=== PATIENT | female | born 1950 | race Caucasian/White ===

== ENCOUNTER 2018-05-30 06:07 | Inpatient (IN) | payer OTHER, SELFPAY ==
[2018-05-24 10:44] VITALS: BMI 48.5
[2018-05-30] VITALS (14 sets, daily range): BP systolic 105–170; BP diastolic 55–94; PULSE 88–100; RESP 8–16; TEMP 36.2–37.2; O2SAT 87–100; BMI 48.5
--- NOTE | 2018-05-30 | DI.RAD.S_ITS ---
PROCEDURE: XR LUMBAR SPINE 2-3V INDICATIONS: L4-5, L5-S1 TLIF TECHNIQUE: 2 views of the lumbar spine were acquired. COMPARISON: None. FINDINGS: Bones: A prior L4-5 and L5-S1 fusion has been performed with transverse pedicle screws and vertical fixation rods through these levels, in addition to bilateral disc prosthesis material at these 2 disc levels. Soft tissues: Overlying bowel gas pattern is normal. No suspicious soft tissue calcifications. IMPRESSION: Normal alignment established after bilateral posterior fusion procedure with interbody disc prosthesis material, crossing L45 and L5-S1. Dictated by: Ridge Barajas M.D. on 05/30/2018 at 16:13 Approved by: Ridge Barajas M.D. on 05/30/2018 at 16:14
[2018-05-30] MEDS: LACTATED RINGERS 1,000 ML 42 ML IV ×2 (07:33→11:00)
--- NOTE | 2018-05-30 07:53 | PM.PREOP ---
Pre-operative Note Interval Note Pre-op Check: Yes History & Physical Reviewed by Physician, Yes Exam Performed and Yes History & Physical exam performed today by Physician Changes: No
[2018-05-30] MEDS: CEFAZOLIN 2 GM/100 ML FROZ.PIGGY IV ×3 (08:05→20:14)
--- NOTE | 2018-05-30 08:52 | SUR.OPER ---
Prone on spine table, head in foam head support, padded chest and pelvic supports, gel pad at knees, lower legs supported by pillows; nipples, genitalia and toes free of pressure, arms secured on foam padded arm boards at <90 degrees abduction. Tape over blanket at thigh secured to table.
[2018-05-30] MEDS: BUPIVACAINE LIPOSOME 266 MG/20 ML VIAL INJ (09:40)
[2018-05-30] MEDS: BUPIVACAINE 0.25% W/ EPI VIAL 50 ML INJ (09:40)
--- NOTE | 2018-05-30 12:09 | P.OP_ITS ---
Operative Date/Time/Diagnoses Date of procedure: 05/30/18 Time of procedure: 08:07 Pre-op diagnosis: 1. L4-5, L5-S1 spondylolisthesis 2. L4-5, L5-S1 spinal stenosis 3. L4-5, L5-S1 spondylosis with radiculopathy Post-op diagnosis: same Procedure & Clinicians Procedure: 1. L4-5, L5-S1 Postero-lateral and posterior interbody fusion 2. L4-5, L5-S1 interbody cage placement. 3. L4-5, L5-S1 decompressive laminectomy with bilateral facetecomies 4. L4-5, L5-S1 Posterior segmental instrumentation 5. Fortine of bone marrow from iliac crest 6. Utilization of microsurgical technique and operating microscope Same procedure as scheduled: Yes Indications: Patient has been having chronic back pain and worsening lumbar radiculopathy. Patient failed multiple conservative management with worsening pain weakness and numbness in her lower extremity. Patient has been having difficulty performing activity of daily living. After discussing risks benefits of treatment options, patient elected proceed with surgery. Surgeon: Devante Monique Casino Controller: Madalyn Lewis Click Yes if Unassisted: No Anesthesia Type: General Operative Notes Closure Type: primary Specimen(s): none sent Implants & Drains: Globus Revolve, rise Cage Applied: catheter Estimated Blood Loss (mL): 250 Blood products transfused: none Procedure in detail: Patient was seen in the preoperative area. Risks and benefits of the surgery was discussed with the patient. Informed consent was obtained from the patient and placed in the chart. Surgical site was marked. Patient was taken to the operative room. General anesthesia was administered. Prophylactic antibiotic was given to the patient less than 30 min before the incision was made. Patient was placed into a prone position on the Rojelio table. Patient's back was then prepped and draped in the sterile fashion. Time- out was performed at this time. Using AP and lateral C-arm imaging the interval between L4-S1 was identified and marked on patient's back. A 2 inch incision 2 in from midline was made on the left side first. The fascia was incised in line with skin incision. Globus MARS retractors was placed inside the incision and docked onto the L4 and L5 lamina. Using microsurgical technique and operating microscope, a L4 and L5 laminectomy and L4-5 L5-S1 facetectomy was performed using a Kerrison rongeur. The disc space at L4-5, L5-S1 was identified. And a total diskectomy was performed at L4-5, L5-S1 level. The endplates were decorticated using a rasp and shaver. The total diskectomy and decortication was performed at L4-5, L5- S1 level in order to to accomplish a L4-5, L5-S1 fusion. The local bone from the laminectomy and facetectomy was saved for local bone grafting. After the total diskectomy and decortication was completed, Globus viacell bone graft material was combined with local bone that was harvested earlier. At this time , a separate skin is incision was made over the iliac crest. A Jamshidi needle was inserted into the iliac crest through a separate skin incision. 5 cc of bone marrow aspiration was obtained through the separate skin incision using a Jamshidi needle from the iliac crest. The bone marrow aspiration was combined with local bone and the via cell bone grafting material. The bone grafting material was placed into the L4-5, L5-S1 interbody space along with two cages, one expandable cage at each level. The cages were expanded to their maximum height using the torque limiting screwdriver. At this time a mirror image incision was made on the right side. The fascia was incised in line with the skin incision. Globus MARS retractor was inserted and docked onto the L4-5, L5-S1 posterolateral gutter. Using the power drill, posterior-lateral decortication was performed at L4-5, L5-S1 level until bleeding cortical bone was identified. The remaining bone grafting material was placed into the L4-5 L5-S1 posterior lateral gutter he order to accomplish posterolateral fusion at the L4-5 L5-S1 levels. Using the double C-arm technique, pedicle screws were placed into the L4, L5, S1 pedicles bilaterally. This was done by placing the Jamshidi needle into the pedicles, then placing the guidewires over the Jamshidi needle, and finally placing the cannulated screws over the guidewires bilaterally. After the pedicle screws were placed, 2 titanium rods was locked into the heads of the pedicle screws using locking caps and torque limiting screwdriver. Total 6 pedicles screws were placed. After all the hardware was placed, and confirmed with AP and lateral C-arm imaging, the wound was then irrigated with sterile normal saline and packed with Ray-Mando gauze for 3 min to accomplish hemostasis. After the gauze was removed the deep fascia was closed with #1 Vicryl suture. The subcutaneous layer was closed with 2-0 Vicryl. The skin was closed with skin chad. Patient tolerated the procedure well. There were no complications. Complications: none Condition: stable Disposition: PACU Plan for aftercare: Admit to inpatient hospital
[2018-05-30] MEDS: METOPROLOL TARTRATE 5 MG/5 ML INJ 1 MG IV ×2 (12:15→12:35)
[2018-05-30] MEDS: SODIUM CHLORIDE 0.9% 1,000 ML 100 ML IV (14:07)
[2018-05-30] MEDS: ONDANSETRON 4 MG/2 ML INJ IV (14:07)
--- NOTE | 2018-05-30 14:29 | CM.IDA ---
DCP Assessment Note: Pt is a 68 yo female, resident of [facility]. Pt is admitted for spinal surgery w/Dr Monique. Pt's PCP is Dr Kodak Fitzgerald. Insurance is [employer] [facility]. Reviewed notes and pre-anesthesia assessment. Attempted to meet w/pt and she was off the floor for surgery. This OPERATING SYSTEM PROGRAMMER will follow closely and attempt again tomorrow, POD#1. ZONIA Holden Discharge Planning/Care Management CM Discharge Assessment Start: 05/30/18 14:25 Freq: Status: Active Protocol: Document 05/30/18 14:25 JUDY (Rec: 05/30/18 14:29 JUDY [email or web address]) Discharge Planning Assessment Assigned Phys Asst JUDY DPOA/Assigned Designee Name irena Woodbritney Contact Information [phone] Advance Directives? Yes Advance Directives on File No History Provided By Medical Record Prior Living Arrangements House Household Members none Type of transporation used prior to Drives own vehicle admit Independent with ADL's No: SOB, weakness, back pain, difficulty walking Is patient alert and oriented? Yes Comment To be assessed. Pre-anesthesia assessment indicates pt has a lot of pain, numbness and difficulty walking, thus may not ambulate often or for long distances. Pt is 5'1'' weighs 257 pounds. Caregiver for Another No Comment Pending assessment and work w/ PT/OT Additional Comment Pt off the floor for surgery today. Assessment by this OPERATING SYSTEM PROGRAMMER and therapy team are pending. Whiteboard Updated in Patient Room with Yes name and ext. # of Phys Asst Review Status In Process
--- NOTE | 2018-05-30 14:37 | PC.NURSE ---
Addendum entered by Loreto Richard R.N. 05/30/18 15:07: RESP - pt remains drowsy, RR 10, 02 sat 97% 2l, discussed monitoring with RT, in for eval, and w/pt hx sleep apnea, c02 monitoring will be started. Original Note: POST OP ARRIVAL - drowsy, awakens easily to voice and can follow basic directions, returns to light snore, RR 8-10 initially, 2l 95%, enc take deep breaths, rolled to side, barrier dsg cdi, fountain wih sm qty clear urine, footie scd on, does state some nausea during transport, 4mg iv zofran given, no pain reported, per PACU, iv dilaudid and exparel given in OR.
[2018-05-30] MEDS: hydrOXYzine pamoate 25 MG CAPSULE PO ×2 (15:42→20:09)
[2018-05-30] MEDS: OXYCODONE IR 5 MG TABLET 10 MG PO ×2 (17:14→20:08)
--- NOTE | 2018-05-30 17:19 | PT.IPTN ---
Current Diagnoses Spondylolisthesis, lumbar region (05/30/18) Spinal stenosis, lumbar region without neurogenic claudication (05/30/18) Intervertebral disc disorders with radiculopathy, lumbar region (05/30/18) Surgery Performed Operation Date: 05/30/18 07:45 Actual Procedures p L4-5, L5-S1 TLIF w/ Posterior Instrumentation - Devante Monique MD Physical Therapy Treatment Note M3 PT-IP Subjective Start: 05/30/18 17:16 Freq: NEEDED Status: Active Protocol: Document 05/30/18 17:17 BEULAH (Rec: 05/30/18 17:19 BEULAH [id number]) Subjective Physical Therapy Visit Type Type Patient Refusal Visit Start Time 17:00 Notes Patient refused to participate in PT evaluation at this time(1700) due to general body fatigue and acute pain. Nurse in charge informed with the refusal. Patient to see tomorrow morning.
[2018-05-30] MEDS: HYDROMORPHONE 1 MG INJ 0.5 MG IV ×2 (18:23→21:20)
--- NOTE | 2018-05-30 18:41 | PC.NURSE ---
Pt resting quietly in bed on back and is easily rousable to voice. 02 2L nc sats high 90's;94% with sleep. Pt's sister is at bedside. Pt reports feeling, tight and nauseated. Given po vistaril with sip water. Reports relief @ reassessment. C/o pain 05/18 and reports left leg/foot numbness. Does states h/o numbness to this extremity preoperatively. Able to palpate pedal pulse to left foot. Equally warm and pink extremities. BL foot pumps in place. Pt given 10 mg oxycodone with little relief. Pt now becoming tearful. Additional family members @ bedside. Discussed with pt often position changes allow for pain relief and pt is resistant. Further encouraged this action with family support and PHOTOGRAPHY TEACHER assistance. Pt repositioned onto right side with pillows to support and ice to back. Reports minimal relief in pain, but is conversing with daughter @ bedside. Administered 0.5 mg iv dilaudid with immediate and excellent relief.
[2018-05-30] MEDS: DOCUSATE 100 MG CAPSULE PO (20:10)
[2018-05-30] MEDS: ACETAMINOPHEN 325 MG TABLET 650 MG PO (20:10)
[2018-05-30] MEDS: SENNOSIDES 8.6 MG TABLET 17.2 MG PO (20:10)
--- NOTE | 2018-05-30 22:40 | PC.NURSE ---
PranavTEfrain has established capnography monitoring as pt has h/o AMY. 02 2l per nc sats 94% with sleep. Daughter has come and spent hours and now returns to pt's home to sleep overnight. Dilaudid iv given for pain 05/18. Pt is currently resting quietly in bed with eyes closed in no distress. Apple to gravity. No further c/o nausea. Per pt's history, pt with sleep apnea without cpap use. Respirations are even and unlabored. BL foot pumps in place. Pt's daughter to bring in pt's own Dulera in A.M. 05/31.
[2018-05-31] VITALS (11 sets, daily range): BP systolic 103–137; BP diastolic 53–79; PULSE 96–102; RESP 13–18; TEMP 36.8–37.3; O2SAT 88–100; BMI 48.7
[2018-05-31] MEDS: SODIUM CHLORIDE 0.9% 1,000 ML 100 ML IV (00:04)
[2018-05-31] MEDS: hydrOXYzine pamoate 25 MG CAPSULE PO ×4 (00:36→23:09)
[2018-05-31] MEDS: CEFAZOLIN 2 GM/100 ML FROZ.PIGGY IV (04:03)
[2018-05-31] MEDS: OXYCODONE IR 5 MG TABLET 10 MG PO ×5 (04:08→23:10)
[2018-05-31 05:29] LABS: Hematocrit 27.5 % (36-46); Hemoglobin 9.5 g/dL (12.0-16.0)
[2018-05-31] MEDS: DOCUSATE 100 MG CAPSULE PO ×2 (08:12→20:33)
[2018-05-31] MEDS: ACETAMINOPHEN 325 MG TABLET 650 MG PO ×3 (08:12→23:10)
--- NOTE | 2018-05-31 10:49 | PM.PNPO.1 ---
Subjective Date Patient Seen: 05/31/18 Time Patient Seen: 07:30 Interval history: Patient is post op day 1 status post L4-S1 TLIF w/ posterior instrumentation with Dr. Monique. She is laying in bed comfortably without any signs of distress. She reports that she was not in the mood for PT yesterday and refused. She reports increased pain in her hips bilaterally. She would like more pain meds at this time. Patient was put on oxygen via nasal cannula due to low pulse ox of 82 yesterday. She reports that her left foot feels like it is sleep. Patient denies fever, chills, chest pain and vomiting. Exam Vital Signs (past 8 hours): - 05/31/18 04:25 05/31/18 08:27 05/31/18 09:25 Temperature 99.1 F 99 F Pulse Rate 98 H 96 H Respiratory Rate 16 18 Blood Pressure 135/79 H 135/75 H Pulse Oximetry 95 95 93 05/31/18 09:26 Temperature Pulse Rate Respiratory Rate Blood Pressure Pulse Oximetry 88 L Oxygen Delivery Method Room Air Oxygen Flow Rate 0 Narrative Exam Narrative: Patient is AOx3. Patient has oxygen nasal cannula in place. Lumbar dressing is CDI. Patient has urinary cath in place. Patient is TTP of the lower lumbar region. Patient is TTP of the R hip. Dorsalis pedis and radial pulses are 2+ symmetrically. Sensation to LE intact to light touch bilaterally. Muscle strength in dorsiflexion, plantarflexion,great toe extension and bottom turner is adequate bilaterally. R calf is tender to palpation; otherwise calfs are soft and compressible. Objective Labs Result Diagrams: 05/31/18 04:52 Labs: Laboratory Results - last 24 hr 05/31/18 04:52 Hgb 9.5 L Hct 27.5 L Assessment & Plan Post-op Postoperative Procedures Operation Date: 05/30/18 07:45 Actual Procedures Side Surgeon p L4-5, L5-S1 TLIF w/ Posterior Instrumentation Devante Monique MD Postoperative day: 1 Postoperative status: marginal pain control Postoperative plan: routine post-op care and ambulate Postoperative plan narrative: Start mobilizing with PT, sitting in chair and ambulating. Continue pain management. Wean off oxygen. Time Spent With Patient less than 15 minutes Quality VTE Deep Vein Thrombosis/Pulmonary Embolism Present on Admission: No
--- NOTE | 2018-05-31 10:52 | PT.IIE ---
Current Diagnoses Spondylolisthesis, lumbar region (05/30/18) Spinal stenosis, lumbar region without neurogenic claudication (05/30/18) Intervertebral disc disorders with radiculopathy, lumbar region (05/30/18) Surgery Performed Operation Date: 05/30/18 07:45 Actual Procedures p L4-5, L5-S1 TLIF w/ Posterior Instrumentation - Devante Monique MD Surgical History (Last Updated 05/24/18 @ 11:20 by Carley Parish, RN) History of cholecystectomy (Acute) Hx of varicose vein ligation and stripping (Acute) Status post bilateral cataract extraction (Acute) Medical History (Last Updated 05/24/18 @ 11:29 by Carley Parish RN) Allergic rhinitis (Acute) Asthma (Acute) DVT (deep venous thrombosis) (Acute) Depressed (Acute) Easy bruisability (Acute) GERD (gastroesophageal reflux disease) (Acute) HTN (hypertension) (Acute) Headache, migraine (Acute) Intermittent constipation (Acute) Intermittent diarrhea (Acute) Left shoulder pain (Acute) Numbness (Acute) Osteoarthritis (Acute) Pedal edema (Acute) Pulmonary embolism (Acute) Seronegative erosive rheumatoid arthritis (Acute) Sleep apnea (Acute) Vertigo (Acute) Xanthelasma (Acute) Physical Therapy Inpatient Evaluation/Re-Eval M1 PT/OT-IP Prior Functional Status Start: 05/30/18 17:16 Freq: NEEDED Status: Active Protocol: Document 05/31/18 15:21 DLM (Rec: 05/31/18 16:42 DLM [id number]) Medical Review Prior Functional Status Medical History Reviewed Yes Diet/Fluid Consistency Regular Communication WNL Mobility and Gait Independent without device short distances in community, used a FWW recently due to pain Activities of Daily Living and IADL's Independent, except sister has been helping with socks and shoes PRN Prior Functional Level (Other details) Sister has been staying with pt lately to assist with IADLS ; sister can stay with pt after surgery for as long as needed per pt. Pt has not driven for 3 months due to L leg pain. Social History Household Members none Living Arrangements House Number of Floors (Floors) One Floor Number of Stairs To Enter/Railing? ramp to enter home Home Environment High Toilet Tub/Shower Ramp Home Equipment Front Wheel Walker Four Wheel Walker Straight Cane Hand Held Shower Long Handled Sponge Grab Bars In Shower Employment Status Retired Additional Social History Comment has two cats, bathtub is higher jacuzzi tub M2 PT-IP Current Condition Start: 05/30/18 17:16 Freq: NEEDED Status: Active Protocol: Document 05/31/18 10:52 DLM (Rec: 05/31/18 11:37 DLM [id number]) Physical Therapy Current Condition Current Condition Evaluation Date 05/31/18 Treatment Diagnosis L4-S1 TLIF, impaired gait Onset Date 05/30/18 Precautions Lumbar Precautions Log Roll No Twisting Limit Bending Lifting Restriction of 10 lbs Gait Belt above Incisional Area M3 PT-IP Subjective Start: 05/30/18 17:16 Freq: NEEDED Status: Active Protocol: Document 05/31/18 10:52 DLM (Rec: 05/31/18 11:37 DLM [email or web address]) Subjective Physical Therapy Visit Type Type Initial Evaluation Visit Start Time 10:10 Visit Stop Time 10:52 Total Visit Minutes 42 Number of NURSE SANE Visits 0 Physical Therapy Visit Comments Patient Comments She describes numbness in left foot today and right thigh Short Term Goals return home when ready Therapy Pain Assessment Pain When Pain Assessed After Treatment Pain Present Pain Present Pain Reported Location Lower Back Intensity 1 Scale Used Numeric (1 - 10) Description Aching Pain Management Techniques Apply Cold Timing of Activity with Medications M4 PT-IP Mobility and Gait Start: 05/30/18 17:16 Freq: NEEDED Status: Active Protocol: Document 05/31/18 10:52 DLM (Rec: 05/31/18 11:37 DLM [id number]) PT-Bed Mobility Assessment Rolling Type of Rolling Log Rolling Level of Assist Minimal Assistance Moderate Assistance 1 Person Assistance Supine to Sit Supine to Sit Moderate Assistance 1 Person Assistance Bedrails Scooting Scooting to Edge of Bed Moderate Assistance Scooting Up and Down in Bed Dependent PT-Transfer Assessment Sit to and From Stand Sit to and from Stand Minimal Assistance Use of Upper Extremities Equipment Transfer Assistive Device Gait Belt Front Wheeled Walker Transfers Transfer Destination Chair Transfer Technique Stand Step Pivot Transfer Ability Level of Assist Minimal Assistance Moderate Assistance Comments Mobility Comments unsteadiness with post/lateral sway, mild light-headedness and mild nausea with initial getting up but did not prevent activity, two sit-stand trials completed before pt able to transfer to [facility] Gait Assessment Comments Gait Comments gait not attempted this visit due to pt's decreased balance with transfers, pt up to recliner and positioned for comfort, ice to incisional area, call light close PT-Balance Assessment Sitting Balance and Reactions Static Sitting Balance Ability Good Dynamic Sitting Balance Ability Good Standing Balance and Reactions Static Standing Balance Ability Fair Dynamic Standing Balance Ability Fair Device Used FWW M5 PT-IP Objective Assessments Start: 05/30/18 17:16 Freq: NEEDED Status: Active Protocol: Document 05/31/18 10:52 DLM (Rec: 05/31/18 11:37 DL [id number]) Orientation Orientation/Cognition Level of Alertness Alert Orientation Name Age Birthday Month Date Year Day of Week Place Situation Language Function Ability No Deficits Noted Safety Awareness Understands Safety Issues Memory Description No Deficits Noted Comments she needs reminders for post- op safety precautions Gross Range of Motion Upper Extremity ROM Assessment Within Functional Limits Lower Extremity ROM Assessment Within Functional Limits Strength Upper Extremity Strength Assessment Within Functional Limits Lower Extremity Strength Assessment Bilaterally Impaired Hip hip flexion 3-/5 Knee knee ext 4+/5 Ankle DF 5/5 Coordination Assessment Gross Coordination Gross Coordination WNL Sensation Assessment Sensation Gross Sensation Right LE Impaired Left LE Impaired Light Touch Impaired Proprioception (Position) Intact Sensation Description Numbness Comments Sensation Comments numbness in right thigh and left foot post-op Muscle Tone Muscle Tone WNL Yes M6 PT-IP Treatment Start: 05/30/18 17:16 Freq: NEEDED Status: Active Protocol: Document 05/31/18 10:52 DLM (Rec: 05/31/18 11:37 [facility] [id number]) Physical Therapy Treatment Education Education Provided Precautions Safety Other Treatments Other Treatment Performed educated in spine precautions M7 PT-IP Assessment and Plan Start: 05/30/18 17:16 Freq: NEEDED Status: Active Protocol: Document 05/31/18 10:52 DLM (Rec: 05/31/18 11:37 DL [id number]) PT Summary Assessment and Plan Potential Rehabilitation Potential Good Status of Condition at Evaluation Evolving Summary Impairments Pain ROM Strength Balance Sensation Bed Mobility Transfers Gait Activity Tolerance Goals Bed Mobility Goal Independent Transfer Goal Independent Front Wheeled Walker Gait Goal Independent Front Wheel Walker Gait Distance 60 feet Days to Meet Goals 3 Frequency of Treatment Frequency Of Treatment Twice a Day Treatment Plan Physical Therapy Treatment Plan Bed Mobility Training Transfer Training Gait Training Therapeutic Exercise Balance Retraining Post Op Education Discharge Planning Hot or Cold Pack Recommendations To Nursing Amount of Assist Needed 1 Person Assist Discharge Recommendations PT Discharge Recommendations Home with Assistance Home Health Other Discharge Recommendations continue to assess for discharge, needs to progress well to achieve home with assist, otherwise she will need SNF
[2018-05-31] MEDS: LISINOPRIL 20 MG TABLET 40 MG PO (12:13)
--- NOTE | 2018-05-31 12:51 | PC.NURSE ---
AM NOTE - repositioned for breakfast, the co2 monitor was off, changed now to NC 1l and sat 94%, bs clear, dim, later w/02 off, ra 93-94%, statedpain 7 on scale 0/10, little tearful, given oxycodone 10mg, 25mg po vistaril and 650mg po tylenol with meal for pain control, fountain w/clear yellow urine, footie scd, hr 96, later am up to dangle position with PT and then tsf to chair, russell with earlier pain medication, some initial dizziness resolved after dangle, sat chair until lunch, pain 2 on scale 0/10, then states back beginning to hurt and becomes a little tearful again, given 10mg oxycodone as she did feel drowsy earlier, assisted x 2 person w/fww, gait belt and back bed, reminding to log roll, wanted to try on back for a while, calm after tsf and conversing with visitors.
--- NOTE | 2018-05-31 13:55 | OT.IP.EVAL ---
Current Diagnoses Spondylolisthesis, lumbar region (05/30/18) Spinal stenosis, lumbar region without neurogenic claudication (05/30/18) Intervertebral disc disorders with radiculopathy, lumbar region (05/30/18) Surgery Performed Operation Date: 05/30/18 07:45 Actual Procedures p L4-5, L5-S1 TLIF w/ Posterior Instrumentation - Devante Monique MD Past Medical History (Last Updated 05/24/18 @ 11:29 by Carley Parish RN) Allergic rhinitis (Acute) Asthma (Acute) DVT (deep venous thrombosis) (Acute) Depressed (Acute) Easy bruisability (Acute) GERD (gastroesophageal reflux disease) (Acute) HTN (hypertension) (Acute) Headache, migraine (Acute) Intermittent constipation (Acute) Intermittent diarrhea (Acute) Left shoulder pain (Acute) Numbness (Acute) Osteoarthritis (Acute) Pedal edema (Acute) Pulmonary embolism (Acute) Seronegative erosive rheumatoid arthritis (Acute) Sleep apnea (Acute) Vertigo (Acute) Xanthelasma (Acute) Surgical History (Last Updated 05/24/18 @ 11:20 by Carley Parish RN) History of cholecystectomy (Acute) Hx of varicose vein ligation and stripping (Acute) Status post bilateral cataract extraction (Acute) Occupational Therapy Inpatient Evaluation/Re-Eval M1 PT/OT-IP Prior Functional Status Start: 05/30/18 17:16 Freq: NEEDED Status: Active Protocol: Document 05/31/18 14:56 CESAR (Rec: 05/31/18 15:14 CESAR [id number]) Medical Review Prior Functional Status Medical History Reviewed Yes Diet/Fluid Consistency Regular Communication WNL Mobility and Gait Independent without device short distances in community, used a FWW recently due to pain Activities of Daily Living and IADL's Independent, except sister has been helping with socks and shoes PRN Prior Functional Level (Other details) Sister has been staying with pt lately to assist with IADLS ; sister can stay with pt after surgery for as long as needed per pt. Pt has not driven for 3 months due to L leg pain. Social History Household Members none Living Arrangements House Number of Floors (Floors) One Floor Number of Stairs To Enter/Railing? ramp to enter home Home Environment High Toilet Tub/Shower Ramp Home Equipment Front Wheel Walker Hand Held Shower Long Handled Sponge Grab Bars In Shower Employment Status Retired Additional Social History Comment has two cats, bathtub is higher jacuzzi tub M2 OT-IP Current Condition Start: 05/31/18 14:55 Freq: Status: Active Protocol: Document 05/31/18 14:56 PJM (Rec: 05/31/18 15:14 PJ [id number]) Occupational Therapy Current Condition Current Condition Evaluation Date 05/31/18 Treatment Diagnosis decreased self care and functional mobility s/p L 4-5, L5-S1 TLIF Diagnosis Onset Date 05/30/18 Post Operative Precautions Lumbar Precautions Log Roll No Twisting Limit Bending Lifting Restriction of 10 lbs Gait Belt above Incisional Area M3 OT- IP Subjective and Pain Start: 05/31/18 14:55 Freq: Status: Active Protocol: Document 05/31/18 14:56 PJM (Rec: 05/31/18 15:14 PJ [id number]) OT- Subjective Occupational Therapy Visit Type Type Initial Evaluation Visit Start Time 13:21 Visit Stop Time 13:55 Total Visit Minutes 34 Occupational Therapy Visit Comments Patient/Caregiver Goals to go home and be able to live alone again OT Pain Assessment Pain When Pain Assessed At Rest Pain Present Pain Present Pain Reported Location Lower Back Intensity 2 Scale Used Numeric (1 - 10) Description Aching Acute Pain Behaviors Guarding M4 OT- IP ADL's Start: 05/31/18 14:55 Freq: Status: Active Protocol: Document 05/31/18 14:56 PJRachel (Rec: 05/31/18 15:14 [facility] [id number]) OT [id number] General Evaluation Self-Feeding Ability Independent OT ADL-Grooming General Evaluation Grooming Ability Standby Assistance Areas Needing Assistance Retrieving/Set-up of Grooming Items Face Washing Comments OT Grooming Comments after set up in bed or chair OT ADL-Oral Care General Eval Oral Care Ability Standby Assistance Areas of Assistance Retrieving/Set-Up of Items Comments Oral Care Comments after set up in bed or chair OT ADL-Dressing General Eval Lower Body Dressing Ability Maximum Assistance Areas Needing Assistance Underpants/Brief Pants/Shorts Socks Shoes Assistive Devices Dressing Assistive Devices Long Handled Shoe [place] [employer] Trade Analyst Sock Aid Comments OT Dressing Comments Began education re: use of adaptive equipment to increased independence in lower body dressing with emphasis on body mechanics and lumbar spine precautions. Provided custody assistant, socjk aid, long shoe horn at pt request. OT ADL-Toileting General Evaluation Toileting Ability Total Assistance Areas Needing Assistance Empty Catheter or Colostomy Comments OT Toileting Comments pt still has fountain in place, began education re: body mechanics during melchor care and toilet paper aids OT ADL-Bathing Devices Bathing Equipment Long Handled Sponge or State Attorney Held Shower Sprayer Comments OT Bathing Comments to be assessed as activity tolerance improves M5 OT- IP IADL's Start: 05/31/18 14:55 Freq: Status: Active Protocol: Document 05/31/18 14:56 PJM (Rec: 05/31/18 15:14 [facility] [id number]) OT-Instrumental Activities of Daily Living Deficits IADL Deficits Identified Deficits Home Safety Awareness Awareness of Need for Assistance at Home Decreased Awareness Medication Management Medication Management No Deficits Identified Medication Management Comments pt states she normally manages own medications Money Management Money Management No Deficits Identified Meal Preparation Meal Preparation Caregiver Provides Assist Meal Preparation Comments sister to assist until pt able Fabric Coating Supervisor Fabric Coating Supervisor Caregiver Provides Assist Fabric Coating Supervisor Comments sister to assist until pt able Driving Driving Caregiver Provides Assist Driving Comments sister to assist until pt able M6 OT- IP Functional Cognition Start: 05/31/18 14:55 Freq: Status: Active Protocol: Document 05/31/18 14:56 PJM (Rec: 05/31/18 15:14 [facility] [id number]) Cognitive Factors Limiting Selfcare Function Cognitive Ability Level of Alertness Drowsy Patient Orientation Name Place Situation Attention Span Ability Capable of Focused Attention Ability to Follow Commands Able to Follow One Step Commands Safety Awareness Underestimates Need for Assistance Problem Solving Ability Needs Assist to Identify Solutions Cognitive Comments Cognitive Assessment Comments Pt has some decreased insight into how surgery will affect ability to function in home setting. OT- Vision and Hearing OT- Hearing Assessment OT- Hearing Assessment WFL OT- Vision Assessment Visual Acuity WFL Glasses All The Time Vision Assessment Comments Pt denies any recent changes. M7 OT- IP Mobility and Balance Start: 05/31/18 14:55 Freq: Status: Active Protocol: Document 05/31/18 14:56 PJM (Rec: 05/31/18 15:14 [facility] [id number]) OT-Transfer Assessment Comments Mobility Comments see P.T. eval OT- Gait Assessment Comments Gait Ability Comments Pt has not yet ambulated with P.T. OT- Balance Assessment Comments Other Balance Tests/Deviations/Treatment see P.T. eval : M8 OT- IP Objective Assessments Start: 05/31/18 14:55 Freq: Status: Active Protocol: Document 05/31/18 14:56 PJM (Rec: 05/31/18 15:14 [facility] [id number]) OT Gross Range of Motion Upper Extremity Range of Motion Assessment Within Functional Limits ROM Impairments pt reports R rotator cuff tear with pain at times but AROM WFL today OT Strength Upper Extremity Strength Assessment Within Functional Limits Comments Strength Comments BUE WFL for self care OT- Coordination Assessment Comments Coordination Comments BUE WFL OT-Muscle Tone Assessment Muscle Tone WNL Yes OT Sensation Assessment Comments Summary Comments Pt denies sensory deficits in BUE's, but reports L foot and R thigh numb. M9 OT- IP Assessment and Plan Start: 05/31/18 14:55 Freq: Status: Active Protocol: Document 05/31/18 14:56 PJM (Rec: 05/31/18 15:14 PJ [id number]) OT Summary Assessment and Plan Potential Rehabilitation Potential Good Analytic Complexity at Evaluation Low Summary OT Impairments Pain Strength Balance Functional Mobility Grooming Dressing Toileting Bathing Toilet Transfers Shower Transfers Assessment Summary Low complexity OT assessment completed with emphasis on self care skills within new lumbar spine precautions. Pt currently limited by pain, decreased balance and activity tolerance which results in performance deficits in all functional mobility. Pt has not yet ambulated with P.T. Pt also has performance deficits in standing grooming, lower body dressing, bathing and toileting. Pt will benefit from OT services here to address the goals below. Goals Grooming Goal Standby Assistance Dressing Goal Standby Assistance Toileting Goal Standby Assistance Bathing Goal Standby Assistance Hand Held Shower Sprayer Long Handled Sponge or [place] Toilet Transfer Goal Standby Assistance Shower Transfer Goal Contact Guard Assistance Patient/Caregiver Education Goal Demonstrate Post-Op Precautions Caregiver Independent Assisting Patient OT-Other Goals grooming to be done standing at sink with good body mechanics Days to Meet Goals 3 Frequency of Treatment Frequency Of Treatment Once a Day Treatment Plan OT Treatment Plan ADL Training Functional Mobility Patient/Family Education Discharge Planning Discharge Recommendations OT Discharge Recommendations Home with 01/05 Assist Other Discharge Recommendations pt states her sister can stay with her for as long as needed after d/c Home Equipment Needs shower seat, toilet paper aid
--- NOTE | 2018-05-31 14:49 | CM.DPC ---
DCP Cont: Met w/pt this morning, explained role. Pt lives (temporarily) with her sister, sister is a [employer] cg, and has been helping pt complete her application for Medicaid. Pt explains she is retired, her dtr Nina P# [phone] is her DPOA. Pt's dtr and sister are organizing a [employer] today. Functional baseline (?). Pt denies h/o HH or SNF although states I want to go home but if I need one (SNF) then I need one. Pt is hopeful she can return home w/assist from her family. Explained to pt that once PT assessed, this SUPERVISOR NET MAKING could return and discuss DCP options or needs again. Pt agreeable and appreciative of the visit. ZONIA Holden
--- NOTE | 2018-05-31 15:21 | PT.IPTN ---
Current Diagnoses Spondylolisthesis, lumbar region (05/30/18) Spinal stenosis, lumbar region without neurogenic claudication (05/30/18) Intervertebral disc disorders with radiculopathy, lumbar region (05/30/18) Surgery Performed Operation Date: 05/30/18 07:45 Actual Procedures p L4-5, L5-S1 TLIF w/ Posterior Instrumentation - Devante Monique MD Physical Therapy Treatment Note M2 PT-IP Current Condition Start: 05/30/18 17:16 Freq: NEEDED Status: Active Protocol: Document 05/31/18 10:52 DLM (Rec: 05/31/18 11:37 DLM [id number]) Physical Therapy Current Condition Current Condition Evaluation Date 05/31/18 Treatment Diagnosis L4-S1 TLIF, impaired gait Onset Date 05/30/18 Precautions Lumbar Precautions Log Roll No Twisting Limit Bending Lifting Restriction of 10 lbs Gait Belt above Incisional Area M3 PT-IP Subjective Start: 05/30/18 17:16 Freq: NEEDED Status: Active Protocol: Document 05/31/18 15:21 DLM (Rec: 05/31/18 16:49 DLM [id number]) Subjective Physical Therapy Visit Type Type Treatment Note Visit Start Time 14:50 Visit Stop Time 15:21 Total Visit Minutes 31 Number of DIETETIC TECHNICIAN Visits 0 Physical Therapy Visit Comments Patient Comments Her left foot continues to be numb Therapy Pain Assessment Pain When Pain Assessed After Treatment Pain Present Pain Present Pain Reported Location Lower Back Intensity 2 Scale Used Numeric (1 - 10) Description Aching Cramping Pain Behaviors Facial Grimacing Guarding Pain Management Techniques Apply Cold Re-positioning Timing of Activity with Medications M4 PT-IP Mobility and Gait Start: 05/30/18 17:16 Freq: NEEDED Status: Active Protocol: Document 05/31/18 15:21 DLM (Rec: 05/31/18 16:49 DLM [id number]) PT-Bed Mobility Assessment Rolling Type of Rolling Log Rolling Level of Assist Minimal Assistance Moderate Assistance Supine to Sit Supine to Sit Moderate Assistance Bedrails Sit to Supine Sit to Supine Moderate Assistance Bedrails Scooting Scooting to Edge of Bed Minimal Assistance Moderate Assistance PT-Transfer Assessment Sit to and From Stand Sit to and from Stand Minimal Assistance Equipment Transfer Assistive Device Gait Belt Front Wheeled Walker Comments Mobility Comments pt declined to sit up in chair this visit, wants to go back to bed Gait Assessment Gait Gait Assistance Required: Contact Guard Assist Distance (Feet) (feet) 12 Assistive Devices Assistive Device Gait Belt Front Wheeled Walker Gait Deviations General Gait Pattern Decreased Stride Length Factors Limiting Gait Function Factors Limiting Gait Function Decreased Activity Tolerance Decreased Strength Pain Comments Gait Comments improved balance during gait this visit, reports left foot numbness makes it harder PT-Balance Assessment Sitting Balance and Reactions Static Sitting Balance Ability Good Dynamic Sitting Balance Ability Good Standing Balance and Reactions Static Standing Balance Ability Fair Dynamic Standing Balance Ability Fair Device Used FWW M5 PT-IP Objective Assessments Start: 05/30/18 17:16 Freq: NEEDED Status: Active Protocol: Document 05/31/18 10:52 DLM (Rec: 05/31/18 11:37 DLM [id number]) Orientation Orientation/Cognition Level of Alertness Alert Orientation Name Age Birthday Month Date Year Day of Week Place Situation Language Function Ability No Deficits Noted Safety Awareness Understands Safety Issues Memory Description No Deficits Noted Comments she needs reminders for post- op safety precautions Gross Range of Motion Upper Extremity ROM Assessment Within Functional Limits Lower Extremity ROM Assessment Within Functional Limits Strength Upper Extremity Strength Assessment Within Functional Limits Lower Extremity Strength Assessment Bilaterally Impaired Hip hip flexion 3-/5 Knee knee ext 4+/5 Ankle DF 5/5 Coordination Assessment Gross Coordination Gross Coordination WNL Sensation Assessment Sensation Gross Sensation Right LE Impaired Left LE Impaired Light Touch Impaired Proprioception (Position) Intact Sensation Description Numbness Comments Sensation Comments numbness in right thigh and left foot post-op Muscle Tone Muscle Tone WNL Yes M6 PT-IP Treatment Start: 05/30/18 17:16 Freq: NEEDED Status: Active Protocol: Document 05/31/18 15:21 DLM (Rec: 05/31/18 16:49 DLM [id number]) Physical Therapy Treatment Education Education Provided Precautions Safety M7 PT-IP Assessment and Plan Start: 05/30/18 17:16 Freq: NEEDED Status: Active Protocol: Document 05/31/18 15:21 DLM (Rec: 05/31/18 16:49 DLM [id number]) PT Summary Assessment and Plan Summary Impairments Pain ROM Strength Balance Sensation Bed Mobility Transfers Gait Activity Tolerance Progress Towards Goals Slow Progress due to Pain Slow Progress due to Activity Tolerance Assessment Summary She is progressing slowly today with her gait and mobility. She reports she has help at home for discharge. She will need to continue to increase her gait to functional household distances to be safe to return home at discharge. Frequency of Treatment Frequency Of Treatment Twice a Day Treatment Plan Physical Therapy Treatment Plan Bed Mobility Training Transfer Training Gait Training Therapeutic Exercise Balance Retraining Post Op Education Discharge Planning Hot or Cold Pack Other Recommendations and Next Treatment increase distance of gait, Focus family training Recommendations To Nursing Amount of Assist Needed 1 Person Assist Discharge Recommendations PT Discharge Recommendations Home with Assistance Home Health Other Discharge Recommendations continue to assess for discharge, needs to progress well to achieve home with assist, otherwise she will need SNF
--- NOTE | 2018-05-31 16:05 | PC.NURSE ---
Pt lying in bed tearful clenching side rails with hands. Daughter @ bedside. Pt states needs to be repositioned in bed and c/o spasms to hips. Does report numbness to LLE improving. Equally warm and pink extremities. Pt is able to move all extremities independently. Rates hip pain 6/10. Applied ice to most painful hip (right) and medicated as per emar. Repositioned in bed with staff assistance x 2 onto left side. Plan to move pt to Yue bed this evening shift for greater comfort. Pt was instructed in breathing techniques to enhance relaxation and provides return demonstration. Daughter @ bedside is a comfort. Apple to gravity with clear, yellow urine.
--- NOTE | 2018-05-31 17:22 | PC.NURSE ---
Pt up in chair for evening meal. Reports improvement in pain /10. No longer tearful. Pulses to feet BL auscultated with doppler x 2.
[2018-05-31] MEDS: HYDROMORPHONE 1 MG INJ 0.5 MG IV (18:27)
--- NOTE | 2018-05-31 18:45 | PC.NURSE ---
Pt calling out, clenching fists and tearful. Repositioned with staff assist x 2. Pt unable to verbalize exact location of pain. Administered 0.5 mg iv dilaudid with immediate relief. Pt encouraged to exercise deep breathing/relaxation techniques. Daughter remains at bedside providing support. Sats 89% on room air with rest. Placed pt on 2L per nc and continuous monitor. Sats in the upper 90's with sedation. Does nod in the affirmative when asked if pain is better.
[2018-05-31] MEDS: MOMETASONE FORMOTEROL 1 EACH INHALATION (20:33)
[2018-05-31] MEDS: SENNOSIDES 8.6 MG TABLET 17.2 MG PO (20:33)
[2018-05-31] MEDS: SODIUM CHLORIDE 0.9% FLUSH 10 ML IV (20:33)
--- NOTE | 2018-05-31 21:10 | PC.NURSE ---
Rouses easily to voice. Resting quietly in bed with eyes closed listening and watching to program on tablet at bedside. Daughter has left for the evening and no further crying out by patient. Did inform pt and pt's daughter fountain catheter to be dc'd in a.m. Coversite dressing to back with single outlined shadowy drainage area. No changes in dressing.
[2018-06-01] MEDS: hydrOXYzine pamoate 25 MG CAPSULE PO (05:02)
[2018-06-01] MEDS: OXYCODONE IR 5 MG TABLET 10 MG PO ×4 (05:02→20:43)
[2018-06-01 05:38] VITALS: BP 116/65; PULSE 88; RESP 16; TEMP 37.1; O2SAT 97
--- NOTE | 2018-06-01 06:14 | PC.NURSE ---
kept fountain in, pt refused.
--- NOTE | 2018-06-01 07:45 | PM.PNPO.1 ---
Subjective Date Patient Seen: 06/01/18 Time Patient Seen: 07:45 Interval history: Pt is s/p lumbar fusion by Dr. Monique. PD 2. Patient complaining of a lot of pain in back area and some numbness in left foot and right thigh. Has only ambulated in her room. Taking oxycodone 10mg q3h, vistaril and tylenol. Fountain still in. Exam Vital Signs (past 8 hours): - 06/01/18 05:38 Temperature 98.8 F Pulse Rate 88 Respiratory Rate 16 Blood Pressure 116/65 Pulse Oximetry 97 Oxygen Delivery Method Room Air Oxygen Flow Rate 2 Narrative Exam Narrative: Pt in bed. A&O x3. Back dressing CDI. 5/5 BLE strength. Numbness in left foot and right anterior thigh and foot. Marcello calves soft and nontender. Fountain in. Objective Labs Result Diagrams: 05/31/18 04:52 Assessment & Plan Post-op Postoperative Procedures Operation Date: 05/30/18 07:45 Actual Procedures Side Surgeon p L4-5, L5-S1 TLIF w/ Posterior Instrumentation Devante Monique MD PD 2. Will try steroid bust for pain control. Pt to ambulate with PT. D/C fountain when more mobile. Possible home in next day or two. Quality VTE Deep Vein Thrombosis/Pulmonary Embolism Present on Admission: No
[2018-06-01] MEDS: HYDROMORPHONE 0.5 MG INJ IV (07:59)
[2018-06-01 08:24] VITALS: BP 115/51; PULSE 98; RESP 16; TEMP 36.9; O2SAT 96
[2018-06-01] MEDS: DOCUSATE 100 MG CAPSULE PO ×2 (08:55→20:44)
[2018-06-01] MEDS: LISINOPRIL 20 MG TABLET 40 MG PO (08:55)
[2018-06-01] MEDS: DEXAMETHASONE 10 MG/ML VIAL IV (08:56)
[2018-06-01] MEDS: SODIUM CHLORIDE 0.9% FLUSH 10 ML IV ×3 (08:57→20:45)
--- NOTE | 2018-06-01 11:08 | PT.IPTN ---
Current Diagnoses Spondylolisthesis, lumbar region (05/30/18) Spinal stenosis, lumbar region without neurogenic claudication (05/30/18) Intervertebral disc disorders with radiculopathy, lumbar region (05/30/18) Surgery Performed Operation Date: 05/30/18 07:45 Actual Procedures p L4-5, L5-S1 TLIF w/ Posterior Instrumentation - Devante Monique MD Physical Therapy Treatment Note M2 PT-IP Current Condition Start: 05/30/18 17:16 Freq: NEEDED Status: Active Protocol: Document 05/31/18 10:52 DLM (Rec: 05/31/18 11:37 DLM [id number]) Physical Therapy Current Condition Current Condition Evaluation Date 05/31/18 Treatment Diagnosis L4-S1 TLIF, impaired gait Onset Date 05/30/18 Precautions Lumbar Precautions Log Roll No Twisting Limit Bending Lifting Restriction of 10 lbs Gait Belt above Incisional Area M3 PT-IP Subjective Start: 05/30/18 17:16 Freq: NEEDED Status: Active Protocol: Document 06/01/18 11:08 AB (Rec: 06/01/18 12:12 AB [id number]) Subjective Physical Therapy Visit Type Type Treatment Note Visit Start Time 11:08 Visit Stop Time 11:45 Total Visit Minutes 37 Number of BURIAL NEEDS SALESPERSON Visits 0 Physical Therapy Visit Comments Patient Comments pt agreeable to do PT Therapy Pain Assessment Pain When Pain Assessed During Mobility Pain Present Pain Present Pain Reported Location Lower Back Scale Used pain scale not stated Pain Behaviors Crying Guarding Pain Management Techniques Apply Cold Re-positioning Timing of Activity with Medications M4 PT-IP Mobility and Gait Start: 05/30/18 17:16 Freq: NEEDED Status: Active Protocol: Document 06/01/18 11:08 AB (Rec: 06/01/18 12:12 AB [id number]) PT-Bed Mobility Assessment Rolling Type of Rolling Log Rolling Level of Assist Maximal Assistance 1 Person Assistance 2 Person Assistance Supine to Sit Supine to Sit Maximum Assistance 1 Person Assistance 2 Person Assistance Bedrails Scooting Scooting to Edge of Bed Maximum Assistance PT-Transfer Assessment Sit to and From Stand Sit to and from Stand Minimal Assistance Moderate Assistance 1 Person Assistance Use of Upper Extremities Equipment Transfer Assistive Device Gait Belt Front Wheeled Walker Orthotic/Prosthetic Devices or Brace: No Transfers Transfer Destination Chair Transfer Technique Stand Step Pivot Transfer Ability Level of Assist Minimal Assistance Moderate Assistance Comments Mobility Comments pt completed transfer bed to chair. unable to tolerate further PT and refused ambulation after transfers. c/ o numbness on BLE. M5 PT-IP Objective Assessments Start: 05/30/18 17:16 Freq: NEEDED Status: Active Protocol: Document 05/31/18 10:52 DLM (Rec: 05/31/18 11:37 DLM [id number]) Orientation Orientation/Cognition Level of Alertness Alert Orientation Name Age Birthday Month Date Year Day of Week Place Situation Language Function Ability No Deficits Noted Safety Awareness Understands Safety Issues Memory Description No Deficits Noted Comments she needs reminders for post- op safety precautions Gross Range of Motion Upper Extremity ROM Assessment Within Functional Limits Lower Extremity ROM Assessment Within Functional Limits Strength Upper Extremity Strength Assessment Within Functional Limits Lower Extremity Strength Assessment Bilaterally Impaired Hip hip flexion 3-/5 Knee knee ext 4+/5 Ankle DF 5/5 Coordination Assessment Gross Coordination Gross Coordination WNL Sensation Assessment Sensation Gross Sensation Right LE Impaired Left LE Impaired Light Touch Impaired Proprioception (Position) Intact Sensation Description Numbness Comments Sensation Comments numbness in right thigh and left foot post-op Muscle Tone Muscle Tone WNL Yes M6 PT-IP Treatment Start: 05/30/18 17:16 Freq: NEEDED Status: Active Protocol: Document 06/01/18 11:08 AB (Rec: 06/01/18 12:12 AB [id number]) Physical Therapy Treatment Education Education Provided Precautions Safety M7 PT-IP Assessment and Plan Start: 05/30/18 17:16 Freq: NEEDED Status: Active Protocol: Document 06/01/18 11:08 AB (Rec: 06/01/18 12:12 AB [id number]) PT Summary Assessment and Plan Potential Rehabilitation Potential Fair Summary Impairments Pain ROM Strength Balance Sensation Bed Mobility Transfers Gait Activity Tolerance Progress Towards Goals Slow Progress due to Pain Assessment Summary pt requiring 2 person extensive assist with mobility at this time and will require SNF rehab to improve strength and function prior to d/c home. pt unable to ambulate at this time with c/o increase pain and unable to tolerate much activity. Goals Bed Mobility Goal Independent Transfer Goal Independent Front Wheeled Walker Gait Goal Independent Front Wheel Walker Gait Distance 60 feet Days to Meet Goals 3 Frequency of Treatment Frequency Of Treatment Twice a Day Treatment Plan Physical Therapy Treatment Plan Bed Mobility Training Transfer Training Gait Training Therapeutic Exercise Balance Retraining Post Op Education Discharge Planning Hot or Cold Pack Other Recommendations and Next Treatment increase distance of gait, Focus family training Recommendations To Nursing Amount of Assist Needed 2 Person Assist Discharge Recommendations PT Discharge Recommendations SNF Rehab
[2018-06-01] MEDS: DEXAMETHASONE 4 MG/ML VIAL IV ×2 (11:39→17:49)
[2018-06-01 12:13] VITALS: BP 146/56; PULSE 100; RESP 14; TEMP 37.1; O2SAT 93
--- NOTE | 2018-06-01 14:27 | OT.IP.TRT ---
Current Diagnoses Spondylolisthesis, lumbar region (05/30/18) Spinal stenosis, lumbar region without neurogenic claudication (05/30/18) Intervertebral disc disorders with radiculopathy, lumbar region (05/30/18) Surgery Performed Operation Date: 05/30/18 07:45 Actual Procedures p L4-5, L5-S1 TLIF w/ Posterior Instrumentation - Devante Monique MD Occupational Therapy Treatment Note M2 OT-IP Current Condition Start: 05/31/18 14:55 Freq: Status: Active Protocol: Document 05/31/18 14:56 PJM (Rec: 05/31/18 15:14 PJM [id number]) Occupational Therapy Current Condition Current Condition Evaluation Date 05/31/18 Treatment Diagnosis decreased self care and functional mobility s/p L 4-5, L5-S1 TLIF Diagnosis Onset Date 05/30/18 Post Operative Precautions Lumbar Precautions Log Roll No Twisting Limit Bending Lifting Restriction of 10 lbs Gait Belt above Incisional Area M3 OT- IP Subjective and Pain Start: 05/31/18 14:55 Freq: Status: Active Protocol: Document 06/01/18 14:24 [facility] (Rec: 06/01/18 14:27 [facility] [id number]) OT- Subjective Occupational Therapy Visit Type Type Patient Refusal Notes Pt states just got back to bed and not wanting to get up for OT at this time. Pt able to recall 2/3 back precautions and did talk to her about possible use of tub bench for tub/shower. Pt states has not talked to her sister getting toilet aid yet
--- NOTE | 2018-06-01 14:54 | PC.NURSE ---
Pt up to chair. Pain more controlled with dexamethasone administration. Dressing to back replaced as it was shearing off. Incisions have steristrips and no signs of infection.
[2018-06-01 15:43] VITALS: BP 135/66; PULSE 97; RESP 16; TEMP 37; O2SAT 92
--- NOTE | 2018-06-01 16:40 | PT.IPTN ---
Current Diagnoses Spondylolisthesis, lumbar region (05/30/18) Spinal stenosis, lumbar region without neurogenic claudication (05/30/18) Intervertebral disc disorders with radiculopathy, lumbar region (05/30/18) Surgery Performed Operation Date: 05/30/18 07:45 Actual Procedures p L4-5, L5-S1 TLIF w/ Posterior Instrumentation - Devante Monique MD Physical Therapy Treatment Note M2 PT-IP Current Condition Start: 05/30/18 17:16 Freq: NEEDED Status: Active Protocol: Document 05/31/18 10:52 DLM (Rec: 05/31/18 11:37 DLM [email or web address]) Physical Therapy Current Condition Current Condition Evaluation Date 05/31/18 Treatment Diagnosis L4-S1 TLIF, impaired gait Onset Date 05/30/18 Precautions Lumbar Precautions Log Roll No Twisting Limit Bending Lifting Restriction of 10 lbs Gait Belt above Incisional Area M3 PT-IP Subjective Start: 05/30/18 17:16 Freq: NEEDED Status: Active Protocol: Document 06/01/18 16:40 AB (Rec: 06/01/18 17:45 AB [id number]) Subjective Physical Therapy Visit Type Type Treatment Note Visit Start Time 16:40 Visit Stop Time 16:56 Total Visit Minutes 16 Number of RN BABY Visits 0 Therapy Pain Assessment Pain When Pain Assessed At Rest Pain Present Pain Present Pain Reported Location Lower Back Scale Used pain scale not stated Pain Management Techniques Apply Cold Timing of Activity with Medications M4 PT-IP Mobility and Gait Start: 05/30/18 17:16 Freq: NEEDED Status: Active Protocol: Document 06/01/18 16:40 AB (Rec: 06/01/18 17:45 AB [id number]) PT-Transfer Assessment Sit to and From Stand Sit to and from Stand Moderate Assistance 1 Person Assistance Use of Upper Extremities Equipment Transfer Assistive Device Gait Belt Front Wheeled Walker Orthotic/Prosthetic Devices or Brace: No Transfers Transfer Destination Chair Transfer Technique pt ambulated from the toilet to the chair using FWW Comments Mobility Comments pt completed sit to stand from the toilet mod A and cues and used grab bars to assist Gait Assessment Gait Gait Assistance Required: Minimum Assistance Distance (Feet) (feet) 10 Able to Maintain Weight Bearing Status Yes During Gait Assistive Devices Assistive Device Gait Belt Front Wheeled Walker Orthotic/Prosthetic Devices or Brace: No Gait Deviations General Gait Pattern Antalgic Decreased Stride Length Decreased Feet Clearance Factors Limiting Gait Function Factors Limiting Gait Function Decreased Activity Tolerance Decreased Sensation Decreased Strength Pain Poor Balance Poor Safety Awareness Comments Gait Comments pt ambulated from the toilet towards the sink using FWW min A and cues. pt was able to maintain standing using FWW for support min A and cues while completing handwashing. pt agreed to sit up on chair and ambulated to the chair using FWW min A and cues ~ 6 ft. M5 PT-IP Objective Assessments Start: 05/30/18 17:16 Freq: NEEDED Status: Active Protocol: Document 05/31/18 10:52 DLM (Rec: 05/31/18 11:37 DLM [email or web address]) Orientation Orientation/Cognition Level of Alertness Alert Orientation Name Age Birthday Month Date Year Day of Week Place Situation Language Function Ability No Deficits Noted Safety Awareness Understands Safety Issues Memory Description No Deficits Noted Comments she needs reminders for post- op safety precautions Gross Range of Motion Upper Extremity ROM Assessment Within Functional Limits Lower Extremity ROM Assessment Within Functional Limits Strength Upper Extremity Strength Assessment Within Functional Limits Lower Extremity Strength Assessment Bilaterally Impaired Hip hip flexion 3-/5 Knee knee ext 4+/5 Ankle DF 5/5 Coordination Assessment Gross Coordination Gross Coordination WNL Sensation Assessment Sensation Gross Sensation Right LE Impaired Left LE Impaired Light Touch Impaired Proprioception (Position) Intact Sensation Description Numbness Comments Sensation Comments numbness in right thigh and left foot post-op Muscle Tone Muscle Tone WNL Yes M6 PT-IP Treatment Start: 05/30/18 17:16 Freq: NEEDED Status: Active Protocol: Document 06/01/18 16:40 AB (Rec: 06/01/18 17:45 AB [id number]) Physical Therapy Treatment Education Education Provided Precautions Safety M7 PT-IP Assessment and Plan Start: 05/30/18 17:16 Freq: NEEDED Status: Active Protocol: Document 06/01/18 16:40 AB (Rec: 06/01/18 17:45 AB [id number]) PT Summary Assessment and Plan Potential Rehabilitation Potential Good Summary Impairments Pain ROM Strength Balance Sensation Cognition Bed Mobility Transfers Gait Activity Tolerance Progress Towards Goals Slow Progress due to Pain Slow Progress due to Activity Tolerance Assessment Summary pt progressing slowly with mobility and continues to require mod A with transfers using FWW. pt ambulated this afternoon in room ~10 + 5 ft requiring min A and unable to do more ambulation or activities afterwards. pt continues to have decrease activity tolerance affecting mobility with c/o increase pain with activity. pt will require SNF rehab to improve strength and functional independence prior to d/c home . Goals Bed Mobility Goal Independent Transfer Goal Independent Front Wheeled Walker Gait Goal Independent Front Wheel Walker Gait Distance 60 feet Days to Meet Goals 3 Frequency of Treatment Frequency Of Treatment Twice a Day Treatment Plan Physical Therapy Treatment Plan Bed Mobility Training Transfer Training Gait Training Therapeutic Exercise Balance Retraining Post Op Education Discharge Planning Hot or Cold Pack Other Recommendations and Next Treatment increase distance of gait, Focus family training Recommendations To Nursing Amount of Assist Needed 1 Person Assist Discharge Recommendations PT Discharge Recommendations SNF Rehab
--- NOTE | 2018-06-01 16:47 | PC.NURSE ---
Dr. Whyte in house. Addressed pt's warfarin use as a home med with MD explaining that this med hasn't been reordered postop. Per Dr. Whyte, continue to hold and MD to follow up with Kiya MACE.
--- NOTE | 2018-06-01 16:59 | PC.NURSE ---
Pt requests assistance to bathroom for bowel movement and is agreeable to sit up in recliner for dinner. Staff x 2 assisted pt to bathroom with pt occasionally crying out during transfer. O.T. and P.T. in to see patient and assisted pt back from bathroom into recliner. Pt reports baseline right thigh numbness and left foot numbness (pt reports left foot numbness is more pronounced postoperatively).
[2018-06-01] MEDS: MAGNESIUM HYDROXIDE 30 ML UDC PO (17:04)
--- NOTE | 2018-06-01 17:04 | OT.IP.TRT ---
Current Diagnoses Spondylolisthesis, lumbar region (05/30/18) Spinal stenosis, lumbar region without neurogenic claudication (05/30/18) Intervertebral disc disorders with radiculopathy, lumbar region (05/30/18) Surgery Performed Operation Date: 05/30/18 07:45 Actual Procedures p L4-5, L5-S1 TLIF w/ Posterior Instrumentation - Devante Monique MD Occupational Therapy Treatment Note M2 OT-IP Current Condition Start: 05/31/18 14:55 Freq: Status: Active Protocol: Document 05/31/18 14:56 PJM (Rec: 05/31/18 15:14 PJM [id number]) Occupational Therapy Current Condition Current Condition Evaluation Date 05/31/18 Treatment Diagnosis decreased self care and functional mobility s/p L 4-5, L5-S1 TLIF Diagnosis Onset Date 05/30/18 Post Operative Precautions Lumbar Precautions Log Roll No Twisting Limit Bending Lifting Restriction of 10 lbs Gait Belt above Incisional Area M3 OT- IP Subjective and Pain Start: 05/31/18 14:55 Freq: Status: Active Protocol: Document 06/01/18 17:02 [facility] (Rec: 06/01/18 17:04 [facility] [email or web address]) OT- Subjective Occupational Therapy Visit Type Type Administrative Note Visit Start Time 14:50 Visit Stop Time 14:55 Total Visit Minutes 5 Notes Pt just about to get dinner, able to help switch to larger gown, get wider FWW for pt to use, and go over back precautions, pt only able to recall 2/3.
--- NOTE | 2018-06-01 17:41 | PC.NURSE ---
Kiya MACE now up on floor. Reports discussed pt's warfarin use with Dr. Whyte and ordered to proceed. Pt informed. Warfarin administered as ordered after verbal clarification.
[2018-06-01] MEDS: WARFARIN 5 MG TABLET PO (17:47)
[2018-06-01 19:51] VITALS: BP 140/73; PULSE 80; RESP 16; TEMP 36.6; O2SAT 93
[2018-06-01] MEDS: ACETAMINOPHEN 325 MG TABLET 650 MG PO (20:44)
[2018-06-01] MEDS: SENNOSIDES 8.6 MG TABLET 17.2 MG PO (20:45)
[2018-06-01] MEDS: MOMETASONE FORMOTEROL 1 EACH INHALATION (20:45)
--- NOTE | 2018-06-01 22:50 | PC.NURSE ---
Pt resting quietly in bed with eyes closed. Occasional loud snore. Checked 02 sats on room air s/p administration of pain medications. Room air 85%. Placed pt on 2L oxygen per NC and sats increase to 95%. Pt does rouse easily to tactile stimuli. BL foot pumps in place.
[2018-06-01 23:39] VITALS: O2SAT 91; O2SAT 96
[2018-06-02] VITALS (9 sets, daily range): BP systolic 112–139; BP diastolic 58–74; PULSE 75–85; RESP 12–18; TEMP 36.1–36.8; O2SAT 94–99
[2018-06-02] MEDS: DEXAMETHASONE 4 MG/ML VIAL IV ×2 (00:17→07:31)
[2018-06-02] MEDS: OXYCODONE IR 5 MG TABLET 10 MG PO ×4 (04:24→20:06)
[2018-06-02] MEDS: SODIUM CHLORIDE 0.9% FLUSH 10 ML IV ×2 (07:32→20:06)
[2018-06-02] MEDS: DOCUSATE 100 MG CAPSULE PO ×2 (07:33→20:06)
--- NOTE | 2018-06-02 08:30 | CM.DPC ---
DCP: continued: Case received, EMR reviewed and listened to a vm from [facility] L/left yesterday after dept hours. She stated referral for snf auth had been given by ZONIA Pompa and that thus far it was noted that pain and numbness were slowing down the therapy progress. More clinical is requested for this scheduled spinal surgery. Will fax updated clinicals including last evenings PT note. No OT order noted, one is now obtained as this will needed for a snf consideration.
[2018-06-02 08:37] LABS: INR 1.1 (0.9-1.3); Prothrombin Time 11.4 SECONDS (10.1-12.7)
--- NOTE | 2018-06-02 09:30 | PT.IPTN ---
Current Diagnoses Spondylolisthesis, lumbar region (05/30/18) Spinal stenosis, lumbar region without neurogenic claudication (05/30/18) Intervertebral disc disorders with radiculopathy, lumbar region (05/30/18) Surgery Performed Operation Date: 05/30/18 07:45 Actual Procedures p L4-5, L5-S1 TLIF w/ Posterior Instrumentation - Devante Monique MD Physical Therapy Treatment Note M2 PT-IP Current Condition Start: 05/30/18 17:16 Freq: NEEDED Status: Active Protocol: Document 05/31/18 10:52 DLM (Rec: 05/31/18 11:37 DLM [email or web address]) Physical Therapy Current Condition Current Condition Evaluation Date 05/31/18 Treatment Diagnosis L4-S1 TLIF, impaired gait Onset Date 05/30/18 Precautions Lumbar Precautions Log Roll No Twisting Limit Bending Lifting Restriction of 10 lbs Gait Belt above Incisional Area M3 PT-IP Subjective Start: 05/30/18 17:16 Freq: NEEDED Status: Active Protocol: Document 06/02/18 09:30 [facility] (Rec: 06/02/18 12:22 [facility]GD [email or web address]) Subjective Physical Therapy Visit Type Type Treatment Note Visit Start Time 09:00 Visit Stop Time 09:30 Total Visit Minutes 30 Number of MAIL ORDER BILLER Visits 1 Physical Therapy Visit Comments Patient Comments Pt states she needs to use the bathroom. Therapy Pain Assessment Pain When Pain Assessed At Rest Pain Present Pain Present Pain Reported Location Lower Back Intensity 4 M4 PT-IP Mobility and Gait Start: 05/30/18 17:16 Freq: NEEDED Status: Active Protocol: Document 06/02/18 09:30 [facility]GD (Rec: 06/02/18 12:22 [facility]GD [email or web address]) PT-Bed Mobility Assessment Rolling Type of Rolling Log Rolling Level of Assist Moderate Assistance 1 Person Assistance Supine to Sit Supine to Sit Moderate Assistance 1 Person Assistance Bedrails Scooting Scooting to Edge of Bed Maximum Assistance PT-Transfer Assessment Sit to and From Stand Sit to and from Stand Moderate Assistance 1 Person Assistance Use of Upper Extremities Equipment Transfer Assistive Device Gait Belt Front Wheeled Walker Transfers Transfer Destination Toilet Transfer Ability Level of Assist Minimal Assistance Gait Assessment Gait Gait Assistance Required: Minimum Assistance Distance (Feet) (feet) 10 Assistive Devices Assistive Device Gait Belt Front Wheeled Walker Gait Deviations General Gait Pattern Antalgic Decreased Stride Length Decreased Feet Clearance Factors Limiting Gait Function Factors Limiting Gait Function Decreased Activity Tolerance Decreased Sensation Decreased Strength Pain Poor Balance Poor Safety Awareness M5 PT-IP Objective Assessments Start: 05/30/18 17:16 Freq: NEEDED Status: Active Protocol: Document 05/31/18 10:52 DLM (Rec: 05/31/18 11:37 DLM [email or web address]) Orientation Orientation/Cognition Level of Alertness Alert Orientation Name Age Birthday Month Date Year Day of Week Place Situation Language Function Ability No Deficits Noted Safety Awareness Understands Safety Issues Memory Description No Deficits Noted Comments she needs reminders for post- op safety precautions Gross Range of Motion Upper Extremity ROM Assessment Within Functional Limits Lower Extremity ROM Assessment Within Functional Limits Strength Upper Extremity Strength Assessment Within Functional Limits Lower Extremity Strength Assessment Bilaterally Impaired Hip hip flexion 3-/5 Knee knee ext 4+/5 Ankle DF 5/5 Coordination Assessment Gross Coordination Gross Coordination WNL Sensation Assessment Sensation Gross Sensation Right LE Impaired Left LE Impaired Light Touch Impaired Proprioception (Position) Intact Sensation Description Numbness Comments Sensation Comments numbness in right thigh and left foot post-op Muscle Tone Muscle Tone WNL Yes M6 PT-IP Treatment Start: 05/30/18 17:16 Freq: NEEDED Status: Active Protocol: Document 06/02/18 09:30 GGD (Rec: 06/02/18 12:22 GGD [email or web address]) Physical Therapy Treatment Education Education Provided Precautions Safety M7 PT-IP Assessment and Plan Start: 05/30/18 17:16 Freq: NEEDED Status: Active Protocol: Document 06/02/18 09:30 [facility]GD (Rec: 06/02/18 12:22 GGD [email or web address]) PT Summary Assessment and Plan Summary Assessment Summary Pt is improving slowly. She needs mod a for bed mobility. She uses grab bars for sit to stand to toilet. She heavy use of UE on FWW with gait. Goals Bed Mobility Goal Independent Transfer Goal Independent Front Wheeled Walker Gait Goal Independent Front Wheel Walker Gait Distance 60 feet Days to Meet Goals 3 Frequency of Treatment Frequency Of Treatment Twice a Day Treatment Plan Physical Therapy Treatment Plan Bed Mobility Training Transfer Training Gait Training Therapeutic Exercise Balance Retraining Post Op Education Discharge Planning Hot or Cold Pack Other Recommendations and Next Treatment increase distance of gait, Focus family training Recommendations To Nursing Amount of Assist Needed 1 Person Assist Discharge Recommendations PT Discharge Recommendations SNF Rehab
--- NOTE | 2018-06-02 10:24 | P.PN_ITS ---
Subjective Date Patient Seen: 06/02/18 Time Patient Seen: 07:00 Interval history: Post op day 3 status post L4-S1 TLIF with posterior instrumentation with Dr. Monique. Patient is laying in bed without signs of distress. Pain reports that her pain is manageable at this time with oxycodone 10mg. She reports ambulating with PT however she is still have difficulty. Patient reports that the L foot numbness has improved, however her she is experiencing L upper thigh numbness. Patient denies any fever, chills, vomiting , chest pain or respiratory distress. Exam Vital Signs (past 8 hours): - 06/02/18 04:46 06/02/18 07:40 06/02/18 08:06 Temperature 97.6 F 98.3 F Pulse Rate 77 75 75 Respiratory Rate 14 16 16 Blood Pressure 139/68 H 131/58 H Pulse Oximetry 94 96 96 06/02/18 08:08 Temperature Pulse Rate Respiratory Rate Blood Pressure Pulse Oximetry 94 Fraction of Inspired Oxygen 21 SaO2/FiO2 Ratio 6400 Oxygen Delivery Method Room Air Oxygen Flow Rate 0 Narrative Exam Narrative: Patient is AOx3. Patient appears to be in no acute distress. Patient has nasal cannula intact for oxygen. Urinary cath intact. Lumbar dressing is CDI. Dorsalis pedis and radial pulses are symmetric. LE muscle strength is adequate bilaterally. LE intact to light touch bilaterally. Slight TTP of the L upper thigh. Calfs are compressible, soft and non tender. Objective Labs Result Diagrams: 05/31/18 04:52 Labs: Laboratory Results - last 24 hr 06/02/18 08:20 PT 11.4 INR 1.1 Assessment & Plan Post-op Postoperative Procedures Operation Date: 05/30/18 07:45 Actual Procedures Side Surgeon p L4-5, L5-S1 TLIF w/ Posterior Instrumentation Devante Monique MD Postoperative day: 3 Postoperative status: doing well Postoperative plan: routine post-op care and ambulate Postoperative plan narrative: Likely to be discharged to SNF in 1-2 days. Continue pain management. Continue ambulating with PT. D/C fountain when more mobile. Quality VTE Deep Vein Thrombosis/Pulmonary Embolism Present on Admission: No
[2018-06-02] MEDS: LISINOPRIL 20 MG TABLET 40 MG PO (12:18)
--- NOTE | 2018-06-02 14:30 | PC.NURSE ---
Addendum entered by Ольга Dhaliwal R.N. 06/02/18 14:59: AT 1430 this shift PT working with patient reported to this RN that patient had homeopathic pills at her bedside arnica pills that they witnessed patient taking. This RN spoke with patient about homeopathic pills and need to not take them at this time due to possible interactions with ordered medications. Patient agreed to stop taking arnica at this time until the doctor could speak with her. Patient put pills back in her back and into patient closet at this time. Marisa in pharmacy made aware of this. Original Note: Day Shift Note: Patient doing well this shift. Patient agreed to have fountain removed and has been able to void. Patient pain much better today per patient report. Oxycodone effective for pain at this time. Patient ambulating into bathroom with 1 person assist with FWW. Dressings dry and intact, minimal old dry drainage noted. CMS intact, patient complains of L foot numbness that is normal for her pre-surgery. Patient now on room air with sats 93-95%, patient needs encouragement and reminders to cough and deep breath and to do IS exercises. Patient hoping to transfer to rehab facility tomorrow.
--- NOTE | 2018-06-02 15:19 | OT.IP.TRT ---
Current Diagnoses Spondylolisthesis, lumbar region (05/30/18) Spinal stenosis, lumbar region without neurogenic claudication (05/30/18) Intervertebral disc disorders with radiculopathy, lumbar region (05/30/18) Surgery Performed Operation Date: 05/30/18 07:45 Actual Procedures p L4-5, L5-S1 TLIF w/ Posterior Instrumentation - Devante Monique MD Occupational Therapy Treatment Note M2 OT-IP Current Condition Start: 05/31/18 14:55 Freq: Status: Active Protocol: Document 05/31/18 14:56 PJM (Rec: 05/31/18 15:14 PJM [id number]) Occupational Therapy Current Condition Current Condition Evaluation Date 05/31/18 Treatment Diagnosis decreased self care and functional mobility s/p L 4-5, L5-S1 TLIF Diagnosis Onset Date 05/30/18 Post Operative Precautions Lumbar Precautions Log Roll No Twisting Limit Bending Lifting Restriction of 10 lbs Gait Belt above Incisional Area M3 OT- IP Subjective and Pain Start: 05/31/18 14:55 Freq: Status: Active Protocol: Document 06/02/18 14:53 CCC (Rec: 06/02/18 15:18 CCC [email or web address]) OT- Subjective Occupational Therapy Visit Type Type Treatment Note Visit Start Time 14:05 Visit Stop Time 14:50 Total Visit Minutes 45 Notes Notified nursing as pt just took homeopathic medications. OT Pain Assessment Pain When Pain Assessed During Mobility Pain Present Pain Present Pain Reported M4 OT- IP ADL's Start: 05/31/18 14:55 Freq: Status: Active Protocol: Document 06/02/18 14:53 CCC (Rec: 06/02/18 15:18 CCC [id number]) OT ADL-Grooming General Evaluation Grooming Ability Standby Assistance Comments OT Grooming Comments Pt able to do while standing with FWW. OT ADL-Dressing General Eval Lower Body Dressing Ability Maximum Assistance OT ADL-Toileting General Evaluation Toileting Ability Total Assistance Areas Needing Assistance Manage Clothing Perform Perineal Hygiene Devices Toileting Assistive Devices Grab Bars Comments OT Toileting Comments Pt dependent for all pericare needs as pt unable to reach. Pt states at home takes a long 10-12 inch wash wipe and gets in between her legs to clean. Pt states sister can assist at home and they are looking into getting a toilet aid. M5 OT- IP IADL's Start: 05/31/18 14:55 Freq: Status: Active Protocol: Document 05/31/18 14:56 PJ (Rec: 05/31/18 15:14 PJM [id number]) OT-Instrumental Activities of Daily Living Deficits IADL Deficits Identified Deficits Home Safety Awareness Awareness of Need for Assistance at Home Decreased Awareness Medication Management Medication Management No Deficits Identified Medication Management Comments pt states she normally manages own medications Money Management Money Management No Deficits Identified Meal Preparation Meal Preparation Caregiver Provides Assist Meal Preparation Comments sister to assist until pt able Control Room Technician Control Room Technician Caregiver Provides Assist Control Room Technician Comments sister to assist until pt able Driving Driving Caregiver Provides Assist Driving Comments sister to assist until pt able M6 OT- IP Functional Cognition Start: 05/31/18 14:55 Freq: Status: Active Protocol: Document 06/02/18 14:53 [facility] (Rec: 06/02/18 15:18 [facility] [email or web address]) Cognitive Factors Limiting Selfcare Function Cognitive Ability Level of Alertness Alert Patient Orientation Name Place Situation Attention Span Ability Capable of Focused Attention Ability to Follow Commands Able to Follow One Step Commands Safety Awareness Decreased Ability to Apply Precautions Underestimates Need for Assistance Problem Solving Ability Needs Assist to Identify Solutions Cognitive Comments Cognitive Assessment Comments Pt still needing vc to incorporate back precautions for all needs. Pt easily distracted and needs step by step instructions. M7 OT- IP Mobility and Balance Start: 05/31/18 14:55 Freq: Status: Active Protocol: Document 06/02/18 14:53 [facility] (Rec: 06/02/18 15:18 [facility] [email or web address]) OT- Bed Mobility Assessment Rolling Type of Rolling Roll to Right Level of Assistance Minimal Assistance Bedrails Supine to Sit Supine to Sit Assist Moderate Assistance 1 Person Assistance Sit to Supine Sit to Supine Assist Moderate Assistance 1 Person Assistance Bedrails Scooting Scooting to Edge of Bed Moderate Assistance 1 Person Assistance OT-Transfer Assessment Sit to and From Stand Sit to and from Stand Contact Guard Assistance Transfers Transfer Ability Standby Assistance Technique Transfer Destination Bed Bedside Commode Chair Transfer Technique Stand Step Pivot Devices Transfer Assistive Devices Gait Belt Front Wheeled Walker Comments Mobility Comments Pt doing much better and able to stand from recliner, BSC and bed with CGA. M8 OT- IP Objective Assessments Start: 05/31/18 14:55 Freq: Status: Active Protocol: Document 05/31/18 14:56 PJM (Rec: 05/31/18 15:14 PJM [id number]) OT Gross Range of Motion Upper Extremity Range of Motion Assessment Within Functional Limits ROM Impairments pt reports R rotator cuff tear with pain at times but AROM WFL today OT Strength Upper Extremity Strength Assessment Within Functional Limits Comments Strength Comments BUE WFL for self care OT- Coordination Assessment Comments Coordination Comments BUE WFL OT-Muscle Tone Assessment Muscle Tone WNL Yes OT Sensation Assessment Comments Summary Comments Pt denies sensory deficits in BUE's, but reports L foot and R thigh numb. M9 OT- IP Assessment and Plan Start: 05/31/18 14:55 Freq: Status: Active Protocol: Document 06/02/18 14:53 [facility] (Rec: 06/02/18 15:18 [facility] [email or web address]) OT Summary Assessment and Plan Summary Progress Towards Goals Progressing Toward Goals Slow Progress due to Cognition Assessment Summary pt continues to need MODA for bed mobility needs and would benefit from family to come in for training. Pt also dependent for pericare needs and extensive assist for ADL's at this time. Goals Days to Meet Goals 2 Frequency of Treatment Frequency Of Treatment Once a Day Treatment Plan Other Treatment Recommendations and Next Family Training Treatment Focus Discharge Recommendations OT Discharge Recommendations Home with 24/ Assist versus skilled rehab pending caregiver training. Home Equipment Needs shower seat, toilet paper aid
--- NOTE | 2018-06-02 15:30 | PT.IPTN ---
Current Diagnoses Spondylolisthesis, lumbar region (05/30/18) Spinal stenosis, lumbar region without neurogenic claudication (05/30/18) Intervertebral disc disorders with radiculopathy, lumbar region (05/30/18) Surgery Performed Operation Date: 05/30/18 07:45 Actual Procedures p L4-5, L5-S1 TLIF w/ Posterior Instrumentation - Devante Monique MD Physical Therapy Treatment Note M2 PT-IP Current Condition Start: 05/30/18 17:16 Freq: NEEDED Status: Active Protocol: Document 05/31/18 10:52 DLM (Rec: 05/31/18 11:37 DLM [id number]) Physical Therapy Current Condition Current Condition Evaluation Date 05/31/18 Treatment Diagnosis L4-S1 TLIF, impaired gait Onset Date 05/30/18 Precautions Lumbar Precautions Log Roll No Twisting Limit Bending Lifting Restriction of 10 lbs Gait Belt above Incisional Area M3 PT-IP Subjective Start: 05/30/18 17:16 Freq: NEEDED Status: Active Protocol: Document 06/02/18 15:30 AB (Rec: 06/02/18 16:41 AB [id number]) Subjective Physical Therapy Visit Type Type Treatment Note Visit Start Time 15:30 Visit Stop Time 15:50 Total Visit Minutes 20 Number of SLUDGE CONTROL OPERATOR Visits 0 Physical Therapy Visit Comments Patient Comments pt agreeable to do PT Therapy Pain Assessment Pain When Pain Assessed At Rest Pain Present Pain Present Pain Reported Location Lower Back Scale Used pain scale not stated but said pain is ok Pain Management Techniques Re-positioning Timing of Activity with Medications M4 PT-IP Mobility and Gait Start: 05/30/18 17:16 Freq: NEEDED Status: Active Protocol: Document 06/02/18 15:30 AB (Rec: 06/02/18 16:41 AB [id number]) PT-Transfer Assessment Sit to and From Stand Sit to and from Stand Contact Guard Assistance Use of Upper Extremities Comments Mobility Comments pt with initial LOB upon sit to stand requiring min A and cues for recovery. Gait Assessment Gait Gait Assistance Required: Contact Guard Assist Distance (Feet) (feet) 100 Able to Maintain Weight Bearing Status Yes During Gait Assistive Devices Assistive Device Gait Belt Front Wheeled Walker Orthotic/Prosthetic Devices or Brace: No Gait Deviations General Gait Pattern Decreased Stride Length Decreased Feet Clearance Step-to Gait Factors Limiting Gait Function Factors Limiting Gait Function Decreased Activity Tolerance Decreased Strength Pain Poor Balance M5 PT-IP Objective Assessments Start: 05/30/18 17:16 Freq: NEEDED Status: Active Protocol: Document 05/31/18 10:52 DLM (Rec: 05/31/18 11:37 DLM [id number]) Orientation Orientation/Cognition Level of Alertness Alert Orientation Name Age Birthday Month Date Year Day of Week Place Situation Language Function Ability No Deficits Noted Safety Awareness Understands Safety Issues Memory Description No Deficits Noted Comments she needs reminders for post- op safety precautions Gross Range of Motion Upper Extremity ROM Assessment Within Functional Limits Lower Extremity ROM Assessment Within Functional Limits Strength Upper Extremity Strength Assessment Within Functional Limits Lower Extremity Strength Assessment Bilaterally Impaired Hip hip flexion 3-/5 Knee knee ext 4+/5 Ankle DF 5/5 Coordination Assessment Gross Coordination Gross Coordination WNL Sensation Assessment Sensation Gross Sensation Right LE Impaired Left LE Impaired Light Touch Impaired Proprioception (Position) Intact Sensation Description Numbness Comments Sensation Comments numbness in right thigh and left foot post-op Muscle Tone Muscle Tone WNL Yes M6 PT-IP Treatment Start: 05/30/18 17:16 Freq: NEEDED Status: Active Protocol: Document 06/02/18 15:30 AB (Rec: 06/02/18 16:41 AB [id number]) Physical Therapy Treatment Education Education Provided Precautions Safety Other Treatments Other Treatment Performed asked pt to inform her sister regarding caregiver training. stated that she called her daughter to let her sister know that she needs to talk to her for caregiver training. M7 PT-IP Assessment and Plan Start: 05/30/18 17:16 Freq: NEEDED Status: Active Protocol: Document 06/02/18 15:30 AB (Rec: 06/02/18 16:41 AB [id number]) PT Summary Assessment and Plan Potential Rehabilitation Potential Fair Summary Impairments Pain ROM Strength Balance Bed Mobility Transfers Gait Activity Tolerance Progress Towards Goals Progressing Toward Goals Assessment Summary pt progressing with mobility but will require assistance for safety. caregiver training will be conducted and tried to arrange one with pt and family but at this time, pt unable to contact family to set up time. will continue to assess. Goals Bed Mobility Goal Independent Transfer Goal Independent Front Wheeled Walker Gait Goal Independent Front Wheel Walker Gait Distance 100 ft Days to Meet Goals 3 Frequency of Treatment Frequency Of Treatment Twice a Day Treatment Plan Physical Therapy Treatment Plan Bed Mobility Training Transfer Training Gait Training Therapeutic Exercise Balance Retraining Post Op Education Discharge Planning Hot or Cold Pack Other Recommendations and Next Treatment increase distance of gait, Focus family training Recommendations To Nursing Amount of Assist Needed 1 Person Assist Discharge Recommendations PT Discharge Recommendations Home with Assistance Home Health
[2018-06-02] MEDS: MAGNESIUM HYDROXIDE 30 ML UDC PO (16:12)
[2018-06-02] MEDS: WARFARIN 2.5 MG TABLET PO (17:13)
[2018-06-02] MEDS: hydrOXYzine pamoate 25 MG CAPSULE PO (20:06)
[2018-06-02] MEDS: SENNOSIDES 8.6 MG TABLET 17.2 MG PO (20:06)
[2018-06-02] MEDS: MOMETASONE FORMOTEROL 1 EACH INHALATION (20:06)
[2018-06-03 00:08] VITALS: BP 108/60; PULSE 72; RESP 16; TEMP 36.6; O2SAT 95
[2018-06-03] MEDS: OXYCODONE IR 5 MG TABLET 10 MG PO ×3 (00:44→14:55)
[2018-06-03] MEDS: SODIUM CHLORIDE 0.9% FLUSH 10 ML IV ×2 (00:46→08:25)
[2018-06-03] MEDS: hydrOXYzine pamoate 25 MG CAPSULE PO (04:34)
[2018-06-03 04:39] VITALS: BP 130/61; PULSE 68; RESP 18; TEMP 36.7; O2SAT 94
[2018-06-03 07:36] VITALS: BP 89/51; PULSE 58; RESP 18; TEMP 36.4; O2SAT 95
[2018-06-03] MEDS: DOCUSATE 100 MG CAPSULE PO (08:24)
[2018-06-03] MEDS: MAG HYDROX/ALUM/SIMETH 30 ML UDC PO (08:30)
--- NOTE | 2018-06-03 09:35 | CM.DPC ---
Addendum entered by ZONIA Rose 06/03/18 14:40: ADD: SW spoke to Radha at [facility] and confirmed they can accept the pt today and will transport at 1530. DIANE faxed pt PASRR, med rec, script, and H&P to [facility] to review. DIANE updated RN, SENIOR [employer]AVA DATA ARCHITECT, pt's Dtr Nina, and pt and all agreeable with d/c plan today. BF Original Note: Addendum entered by ZONIA Rose 06/03/18 13:27: ADD: Per Iram at [facility], pt is approved for SNF auth at [facility]. SW called [facility] and left voicemail with update on SNF auth approval and likely pt d/c to SNF today. Per , pt is medically stable to d/c to SNF today. DIANE called pt's Dtr Nina at pt's request and updated on insurance SNF auth and likely d/c today and Dtr/DPOA Nina is very agreeable with d/c plan. Plan: SW waiting for return call from [facility] to determine time for discharge. ZONIA Rose Original Note: DCP Cont: Per PT, hoping to complete caregiver training with pt's sister but no confirmed time and date that sister can be bedside. Currently recommending home with assist and HH. Pt had concerns with mobility and had been agreeable with beginning process of [facility] SNF auth to determine if SNF is an option. DIANE called and [facility] was requesting clinicals from yesterday and today if available, LEXUS Madrigal faxed requested clinicals to [facility] w/e number. Per [facility], pt's review still with [facility] and not Physician review at this time. DIANE met bedside with pt and explained role and discussed d/c planning and pt confirms that she still would prefer SNF rehab at [facility] if possible but would be agreeable with HH if SNF not auth'd by insurance and SW provided the HH Choice List and pt does not have a preference. Pt confirmed that she would be agreeable with SW returning her Dtr/DPOA Nina's message requesting information on d/c planning. Plan: SW to follow closely for [facility] review to determine if pt is auth'd for SNF at [facility] vs home with sister and HH. If HH then SW to make referral to agency with the earliest availability. ZONIA Rose
[2018-06-03 09:40] VITALS: PULSE 58; RESP 16; O2SAT 95
[2018-06-03] MEDS: LISINOPRIL 20 MG TABLET 40 MG PO (11:58)
[2018-06-03 12:12] VITALS: BP 126/75; PULSE 99; RESP 16; TEMP 36.6; O2SAT 99
--- NOTE | 2018-06-03 13:24 | PT.IPTN ---
Current Diagnoses Spondylolisthesis, lumbar region (05/30/18) Spinal stenosis, lumbar region without neurogenic claudication (05/30/18) Intervertebral disc disorders with radiculopathy, lumbar region (05/30/18) Surgery Performed Operation Date: 05/30/18 07:45 Actual Procedures p L4-5, L5-S1 TLIF w/ Posterior Instrumentation - Devante Monique MD Physical Therapy Treatment Note M2 PT-IP Current Condition Start: 05/30/18 17:16 Freq: NEEDED Status: Active Protocol: Document 05/31/18 10:52 DLM (Rec: 05/31/18 11:37 DLM [id number]) Physical Therapy Current Condition Current Condition Evaluation Date 05/31/18 Treatment Diagnosis L4-S1 TLIF, impaired gait Onset Date 05/30/18 Precautions Lumbar Precautions Log Roll No Twisting Limit Bending Lifting Restriction of 10 lbs Gait Belt above Incisional Area M3 PT-IP Subjective Start: 05/30/18 17:16 Freq: NEEDED Status: Active Protocol: Document 06/03/18 10:00 CLB (Rec: 06/03/18 13:24 CLB [id number]) Subjective Physical Therapy Visit Type Type Treatment Note Visit Start Time 10:00 Visit Stop Time 10:30 Total Visit Minutes 30 Number of ROUTE PROCESS ADMINISTRATOR Visits 1 Physical Therapy Visit Comments Patient Comments Pt states she needs to use the bathroom. Therapy Pain Assessment Pain When Pain Assessed At Rest Pain Present Pain Present Pain Reported Location Lower Back Intensity 1 Pain Management Techniques Apply Cold M4 PT-IP Mobility and Gait Start: 05/30/18 17:16 Freq: NEEDED Status: Active Protocol: Document 06/03/18 10:00 CLB (Rec: 06/03/18 13:24 CLB [id number]) PT-Bed Mobility Assessment Rolling Type of Rolling Log Rolling Level of Assist Standby Assistance Supine to Sit Supine to Sit Moderate Assistance 1 Person Assistance Bedrails Scooting Scooting to Edge of Bed Maximum Assistance PT-Transfer Assessment Sit to and From Stand Sit to and from Stand Moderate Assistance 1 Person Assistance Use of Upper Extremities Equipment Transfer Assistive Device Gait Belt Front Wheeled Walker Transfers Transfer Destination Chair Toilet Transfer Technique pt ambulated from the toilet to the chair using FWW Transfer Ability Level of Assist Minimal Assistance Gait Assessment Gait Gait Assistance Required: Contact Guard Assist Distance (Feet) (feet) 50 Able to Maintain Weight Bearing Status Yes During Gait Assistive Devices Assistive Device Gait Belt Front Wheeled Walker Orthotic/Prosthetic Devices or Brace: No Gait Deviations General Gait Pattern Decreased Stride Length Decreased Feet Clearance Step-to Gait Factors Limiting Gait Function Factors Limiting Gait Function Decreased Activity Tolerance Decreased Strength Pain Poor Balance M5 PT-IP Objective Assessments Start: 05/30/18 17:16 Freq: NEEDED Status: Active Protocol: Document 05/31/18 10:52 DLM (Rec: 05/31/18 11:37 DLM [id number]) Orientation Orientation/Cognition Level of Alertness Alert Orientation Name Age Birthday Month Date Year Day of Week Place Situation Language Function Ability No Deficits Noted Safety Awareness Understands Safety Issues Memory Description No Deficits Noted Comments she needs reminders for post- op safety precautions Gross Range of Motion Upper Extremity ROM Assessment Within Functional Limits Lower Extremity ROM Assessment Within Functional Limits Strength Upper Extremity Strength Assessment Within Functional Limits Lower Extremity Strength Assessment Bilaterally Impaired Hip hip flexion 3-/5 Knee knee ext 4+/5 Ankle DF 5/5 Coordination Assessment Gross Coordination Gross Coordination WNL Sensation Assessment Sensation Gross Sensation Right LE Impaired Left LE Impaired Light Touch Impaired Proprioception (Position) Intact Sensation Description Numbness Comments Sensation Comments numbness in right thigh and left foot post-op Muscle Tone Muscle Tone WNL Yes M6 PT-IP Treatment Start: 05/30/18 17:16 Freq: NEEDED Status: Active Protocol: Document 06/03/18 10:00 CLB (Rec: 06/03/18 13:24 CLB [id number]) Physical Therapy Treatment Exercises Exercises Ankle Pumps Education Education Provided Precautions Safety Other Treatments Other Treatment Performed Pt states she is still unable to contact sister to come in for caregiver training. She sent a text to her daughter but has not heard back from her at this time. M7 PT-IP Assessment and Plan Start: 05/30/18 17:16 Freq: NEEDED Status: Active Protocol: Document 06/03/18 10:00 CLB (Rec: 06/03/18 13:24 CLB [id number]) PT Summary Assessment and Plan Potential Rehabilitation Potential Fair Summary Impairments Pain ROM Strength Balance Bed Mobility Transfers Gait Activity Tolerance Progress Towards Goals Progressing Toward Goals Assessment Summary Pt continues to need Mod A for bed mobility. Pt is able to ambulate safely in room with FWW. Pt needed assist with pericare. caregiver training will be conducted and tried to arrange one with pt and family but at this time, pt unable to contact family to set up time. will continue to assess. Pt may need SNF rehab depending on pt progress and her caregivers ability to care for her at home. Goals Bed Mobility Goal Independent Transfer Goal Independent Front Wheeled Walker Gait Goal Independent Front Wheel Walker Gait Distance 60 feet Days to Meet Goals 3 Frequency of Treatment Frequency Of Treatment Twice a Day Treatment Plan Physical Therapy Treatment Plan Bed Mobility Training Transfer Training Gait Training Therapeutic Exercise Balance Retraining Post Op Education Discharge Planning Hot or Cold Pack Other Recommendations and Next Treatment increase distance of gait, Focus family training Recommendations To Nursing Amount of Assist Needed 1 Person Assist Discharge Recommendations PT Discharge Recommendations Home with Assistance Home Health Other Discharge Recommendations SNF
--- NOTE | 2018-06-03 13:56 | PM.DS.1 ---
History of Present Illness Date Patient Seen: 06/03/18 Time Patient Seen: 13:00 Chief complaint: L4-5 L5-S1 TLIF W/POST INSTRU *CPT'S NICOLLE NOTES* Discharge Providers Date of admission: 05/30/18 06:07 Consults: 05/30/18 13:16 Consult to Occupational Therapy Evaluate & Treat Comment: Physician Instructions: Evaluate and treat Consult to Physical Therapy Evaluate & Treat Comment: Physician Instructions: Evaluate and Treat 05/30/18 15:58 Consult to Dietitian, Adult Routine Comment: Reason For Exam: obesity 06/02/18 08:29 Consult to Occupational Therapy Evaluate & Treat Comment: Physician Instructions: Evaluate and treat Discharge provider: Mabel Whyte MD Discharge Date: 06/03/18 Summary Discharge Diagnosis: spinal stenosis with decompression and fusion by Dr. Monique Hospital Course: Patient initially had problems with pain control postoperatively. She responded to narcotic medications and was doing well with oral agents at the time of discharge. She had some numbness into her left leg but had fairly normal strength overall. She was stable at the time of discharge and discharged to custodial facility. Exam Vital Signs (past 8 hours): - 06/03/18 07:36 06/03/18 09:40 06/03/18 12:12 Temperature 97.6 F 97.9 F Pulse Rate 58 L 58 L 99 H Respiratory Rate 18 16 16 Blood Pressure 89/51 L 126/75 H Pulse Oximetry 95 95 99 Fraction of Inspired Oxygen 21 SaO2/FiO2 Ratio 6400 Oxygen Delivery Method Room Air Oxygen Flow Rate 0 Narrative Exam Narrative: Alert and oriented, lungs clear abdomen obese but benign, dressing intact and dry, minimal swelling in bilateral lower extremities, calf soft, strength intact in bilateral lower extremities mild left leg numbness Objective Labs Result Diagrams: 05/31/18 04:52 Discharge Plan Discharge Plan Patient Disposition: SNF Transfer to: [facility] Transportation: Wheelchair I certify the postop hospital custodial care is medically necessary on a continuing basis for any conditions for which he/ she received care during this hospitalization.: Yes The receiving facility has agreed to accept transfer and provide medical treatment.: Yes Discharge Med Rec/Prescriptions Prescriptions: New sennosides [senna] 8.6 mg Tablet 17.2 mg PO BEDTIME Qty: 30 RF: 0 magnesium hydroxide [Milk of Magnesia] 400 mg/5 mL Suspension 30 ml PO DAILY PRN (Reason: Constipation) Qty: 30 RF: 0 bisacodyl 10 mg Suppository 10 mg NH PRN PRN (Reason: Constipation) Qty: 30 RF: 0 docusate sodium 100 mg Capsule 100 mg PO BID Qty: 60 RF: 0 alum-mag hydroxide-simeth [Mag-Al Plus] 200-200-20 mg/5 mL Suspension 30 ml PO QID PRN (Reason: Dyspepsia) Qty: 30 RF: 0 oxycodone 5 mg Tablet 10 mg PO Q3HR PRN (Reason: Pain, Severe (7-10)) Qty: 40 RF: 0 hydroxyzine pamoate 25 mg Capsule 25 mg PO Q4HR PRN (Reason: Nausea And Vomiting) Qty: 30 RF: 0 Continue cyclobenzaprine 10 mg Tablet 5 mg PO BID PRN (Reason: Muscle Spasm) RF: 0 acetaminophen [Tylenol Extra Strength] 500 mg Tablet 1,000 mg PO Q6H PRN (Reason: pain) RF: 0 oxycodone-acetaminophen 5-325 mg Tablet 1 tab PO Q6-8H PRN (Reason: Pain) RF: 0 warfarin 5 mg Tablet 5 mg PO QMWF RF: 0 warfarin 5 mg Tablet 2.5 mg PO [id number] RF: 0 albuterol sulfate 90 mcg/actuation Hfa Aerosol Inhaler 2 puff INHALATION Q4-6H PRN (Reason: Asthma) RF: 0 lisinopril 40 mg Tablet 40 mg PO DAILY RF: 0 mometasone-formoterol [Dulera] 100-5 mcg/actuation Hfa Aerosol Inhaler 1 puff INHALATION BEDTIME RF: 0 methotrexate 2.5 mg/mL Solution 0.8 mg/m2 PO QWEEK RF: 0 Discontinued enoxaparin [Lovenox] 120 mg/0.8 mL Syringe 120 mg SUB-Q Q12H RF: 0 Discharge Health Status Multidrug resistant organism: No MDRO Provider Discharge Instructions Diet: Diet as Tolerated Liquid consistency: Normal/Thin Food texture: Regular Activity: ambulate 3 times a day Cold/Heat Therapy: ice to back as needed Skin/Wound/Dressing Care Report to your healthcare provider any signs of infection, such as:: chills, fever, night sweats, increased pain and unusual drainage Dressing: keep dressing clean and dry Special Rehabilitation Services Reason for rehabilitation: Post-operative therapy Rehab type: Physical therapy Visit Report/Discharge Packet Instructions: DI for Transforaminal Lumbar Interbody Fusion Discharge Data Attending Provider: Devante Monique Admit Date/Time: 05/30/18 06:07 Quality VTE Deep Vein Thrombosis/Pulmonary Embolism Present on Admission: No
--- NOTE | 2018-06-03 14:01 | P.DS_ITS ---
History of Present Illness Date Patient Seen: 06/03/18 Time Patient Seen: 13:00 Chief complaint: L4-5 L5-S1 TLIF W/POST INSTRU *CPT'S NICOLLE NOTES* Discharge Providers Date of admission: 05/30/18 06:07 Consults: 05/30/18 13:16 Consult to Occupational Therapy Evaluate & Treat Comment: Physician Instructions: Evaluate and treat Consult to Physical Therapy Evaluate & Treat Comment: Physician Instructions: Evaluate and Treat 05/30/18 15:58 Consult to Dietitian, Adult Routine Comment: Reason For Exam: obesity 06/02/18 08:29 Consult to Occupational Therapy Evaluate & Treat Comment: Physician Instructions: Evaluate and treat Discharge provider: Mabel Whyte MD Discharge Date: 06/03/18 Summary Discharge Diagnosis: spinal stenosis with decompression and fusion by Dr. Monique Hospital Course: Patient initially had problems with pain control postoperatively. She responded to narcotic medications and was doing well with oral agents at the time of discharge. She had some numbness into her left leg but had fairly normal strength overall. She was stable at the time of discharge and discharged to [facility] facility. Exam Vital Signs (past 8 hours): - 06/03/18 07:36 06/03/18 09:40 06/03/18 12:12 Temperature 97.6 F 97.9 F Pulse Rate 58 L 58 L 99 H Respiratory Rate 18 16 16 Blood Pressure 89/51 L 126/75 H Pulse Oximetry 95 95 99 Fraction of Inspired Oxygen 21 SaO2/FiO2 Ratio 6400 Oxygen Delivery Method Room Air Oxygen Flow Rate 0 Narrative Exam Narrative: Alert and oriented, lungs clear abdomen obese but benign, dressing intact and dry, minimal swelling in bilateral lower extremities, calf soft, strength intact in bilateral lower extremities mild left leg numbness Objective Labs Result Diagrams: 05/31/18 04:52 Discharge Plan Discharge Plan Patient Disposition: SNF Transfer to: [facility] Transportation: Wheelchair I certify the postop hospital usp care is medically necessary on a continuing basis for any conditions for which he/ she received care during this hospitalization.: Yes The receiving facility has agreed to accept transfer and provide medical treatment.: Yes Discharge Med Rec/Prescriptions Prescriptions: New sennosides [senna] 8.6 mg Tablet 17.2 mg PO BEDTIME Qty: 30 RF: 0 magnesium hydroxide [Milk of Magnesia] 400 mg/5 mL Suspension 30 ml PO DAILY PRN (Reason: Constipation) Qty: 30 RF: 0 bisacodyl 10 mg Suppository 10 mg [place] PRN PRN (Reason: Constipation) Qty: 30 RF: 0 docusate sodium 100 mg Capsule 100 mg PO BID Qty: 60 RF: 0 alum-mag hydroxide-simeth [Mag-Al Plus] 200-200-20 mg/5 mL Suspension 30 ml PO QID PRN (Reason: Dyspepsia) Qty: 30 RF: 0 oxycodone 5 mg Tablet 10 mg PO Q3HR PRN (Reason: Pain, Severe (7-10)) Qty: 40 RF: 0 hydroxyzine pamoate 25 mg Capsule 25 mg PO Q4HR PRN (Reason: Nausea And Vomiting) Qty: 30 RF: 0 Continue cyclobenzaprine 10 mg Tablet 5 mg PO BID PRN (Reason: Muscle Spasm) RF: 0 acetaminophen [Tylenol Extra Strength] 500 mg Tablet 1,000 mg PO Q6H PRN (Reason: pain) RF: 0 oxycodone-acetaminophen 5-325 mg Tablet 1 tab PO Q6-8H PRN (Reason: Pain) RF: 0 warfarin 5 mg Tablet 5 mg PO QMWF RF: 0 warfarin 5 mg Tablet 2.5 mg PO QTUTHSASU RF: 0 albuterol sulfate 90 mcg/actuation Hfa Aerosol Inhaler 2 puff INHALATION Q4-6H PRN (Reason: Asthma) RF: 0 lisinopril 40 mg Tablet 40 mg PO DAILY RF: 0 mometasone-formoterol [Dulera] 100-5 mcg/actuation Hfa Aerosol Inhaler 1 puff INHALATION BEDTIME RF: 0 methotrexate 2.5 mg/mL Solution 0.8 mg/m2 PO QWEEK RF: 0 Discontinued enoxaparin [Lovenox] 120 mg/0.8 mL Syringe 120 mg SUB-Q Q12H RF: 0 Discharge Health Status Multidrug resistant organism: No MDRO Provider Discharge Instructions Diet: Diet as Tolerated Liquid consistency: Normal/Thin Food texture: Regular Activity: ambulate 3 times a day Cold/Heat Therapy: ice to back as needed Skin/Wound/Dressing Care Report to your healthcare provider any signs of infection, such as:: chills, fever, night sweats, increased pain and unusual drainage Dressing: keep dressing clean and dry Special Rehabilitation Services Reason for rehabilitation: Post-operative therapy Rehab type: Physical therapy Visit Report/Discharge Packet Instructions: DI for Transforaminal Lumbar Interbody Fusion Discharge Data Attending Provider: Devante Monique Admit Date/Time: 05/30/18 06:07 Quality VTE Deep Vein Thrombosis/Pulmonary Embolism Present on Admission: No
--- NOTE | 2018-06-03 14:59 | PC.NURSE ---
1455 Pt to transfer to [facility] via w/c at approx 1530 today. Pt given po pain medication now, report called to Rahel at the facility.
[2018-06-03 15:30] VITALS: BP 120/63; PULSE 82; RESP 16; TEMP 36.6; O2SAT 98
--- NOTE | 2018-06-03 16:27 | PT.IPTN ---
Current Diagnoses Spondylolisthesis, lumbar region (05/30/18) Spinal stenosis, lumbar region without neurogenic claudication (05/30/18) Intervertebral disc disorders with radiculopathy, lumbar region (05/30/18) Surgery Performed Operation Date: 05/30/18 07:45 Actual Procedures p L4-5, L5-S1 TLIF w/ Posterior Instrumentation - Devante Monique MD Physical Therapy Treatment Note M2 PT-IP Current Condition Start: 05/30/18 17:16 Freq: NEEDED Status: Active Protocol: Document 05/31/18 10:52 DLM (Rec: 05/31/18 11:37 DLM [id number]) Physical Therapy Current Condition Current Condition Evaluation Date 05/31/18 Treatment Diagnosis L4-S1 TLIF, impaired gait Onset Date 05/30/18 Precautions Lumbar Precautions Log Roll No Twisting Limit Bending Lifting Restriction of 10 lbs Gait Belt above Incisional Area M3 PT-IP Subjective Start: 05/30/18 17:16 Freq: NEEDED Status: Active Protocol: Document 06/03/18 15:40 CLB (Rec: 06/03/18 16:26 CLB [id number]) Subjective Physical Therapy Visit Type Type Patient Refusal Notes Pt refused stating she was too tired. Pt was in chair waiting to be transferred to [facility].
--- NOTE | 2018-06-03 16:31 | PC.NURSE ---
DISCHARGE NOTE Received pt sitting in bed, awaiting d/c to [facility]. per previous shift RN, pt ready for d/c, papaerwork /packet completed, and just awaiting pick-up. pt off unit at approximately 1555 via wheelchair with [facility] [employer].
== END 2018-06-03 15:55 | DRG 454 ==
PROVIDERS: Physician Assistant; Admitting Provider Orthopaedic Surgery Orthopaedic Surgery of the Spine; Visit Provider Orthopaedic Surgery Orthopaedic Surgery of the Spine
PROC: 0SG00AJ Fusion of Lumbar Vertebral Joint with Interbody Fusion Device, Posterior Approach, Anterior Column, Open Approach (ICD-10-PCS; principal; 2018-05-30 07:45)
DX: M48.061 Spinal stenosis, lumbar region without neurogenic claudication (principal); Z68.42 Body mass index [BMI] 45.0-49.9, adult; M43.16 Spondylolisthesis, lumbar region; M51.16 Intervertebral disc disorders with radiculopathy, lumbar region; E66.9 Obesity, unspecified; J45.909 Unspecified asthma, uncomplicated; G47.33 Obstructive sleep apnea (adult) (pediatric); I10 Essential (primary) hypertension; K21.9 Gastro-esophageal reflux disease without esophagitis; F32.9 Major depressive disorder, single episode, unspecified; M25.552 Pain in left hip; M25.551 Pain in right hip
CPT/HCPCS: 36415; 72100; 76001; 85014; 85018; 85610; 94760; 97116; 97162; 97165; 97530; 97535; C1776; C9290; J0330; J0690; J1100; J1170; J2250; J2405; J2704; J3010

== ENCOUNTER → 2018-07-17 11:10 | Outpatient (CLI) | payer OTHER, SELFPAY ==
[2018-05-30 15:50] VITALS: BMI 48.5
== END ==
PROVIDERS: PCP Family Medicine; Visit Provider Internal Medicine
DX: L98.492 Non-pressure chronic ulcer of skin of other sites with fat layer exposed (principal); S31.000A Unspecified open wound of lower back and pelvis without penetration into retroperitoneum, initial encounter; L08.9 Local infection of the skin and subcutaneous tissue, unspecified; E66.01 Morbid (severe) obesity due to excess calories; I10 Essential (primary) hypertension
CPT/HCPCS: 11042; 11045; 87070; 87077; 87147; 87186; 87205; 99214

== ENCOUNTER → 2018-07-24 10:58 | Outpatient (CLI) | payer OTHER, SELFPAY ==
[2018-05-30 15:50] VITALS: BMI 48.5
--- NOTE | 2018-07-24 | OV.WND_ITS ---
Progress Note Details Patient Name: Natali Herman Patient Number: [id number] PatientPatientDate: 07/24/2018 Clinician: Misty Price Physician / Gas Desulfurizer: Brandon Neal SUBJECTIVE Chief Complaint This information was obtained from the patient Non-healing wound to back post op Allergies NKDA HPI This information was obtained from the patient 07/24/18. Seen by Dr. Neal. The patient's wound cultures from the lower back non-pressure ulcers grew a Strep species and two resistant species of MRSA. She's now on Bactrim and doxycycline and reports some nausea. She's also scheduled to see Dr. Monique on Monday for deep debridement of the ulcers in the OR. 07/17/18. Seen by Dr. Neal. 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 [facility] and undergoing wet to dry dressing changes. She reports some pain at the ulcer sites and has difficulty offloading due to morbid obesity and very limited mobility. She's not currently on antibiotics and will not be able to see her surgeon again for at least one week. Past Medical History This information was obtained from the patient Patient has a medical history of: Hypertension Pulmonary Embolus Obesity Asthma Spondylosis Osteoarthritis Complaints and Symptoms This information was obtained from the patient Patient complains of: General Notes: I have reviewed and concur with the Review of Systems and Past Family Social History documents completed by the clinician, I have reviewed and concur with the Wound Assessment document completed by the clinician Hematologic/Lymphatic: Bleeding Tendency Integumentary (Hair/Skin/Nails): Open Sore Prior Wound History: Drainage, Erythema, Pain Patient denies complaints or symptoms related to: Constitutional Symptoms (General Health): Chills, Fever Ear/Nose/Mouth/Throat: Hearing Loss / Aid Hematologic/Lymphatic: Bleeding / Clotting Disorders Musculoskeletal: Backache Neurological: Loss of Protective Sensation Respiratory: Shortness of Breath Additional Information Does patient have a history of Cancer? Yes? Complete all questions.: No OBJECTIVE Constitutional Vital signs reviewed and noted. Well developed. Alert. Clean appearing.. Height/ Length: 60 in (152.4 cm), Weight: 236.3 lbs (107.41 kgs), BMI: 46.1, Temperature: 98.6 ?F (37 ?C), Pulse: 99 bpm, Respiratory Rate: 18 breaths/min, Blood Pressure: 118/80 mmHg, Pulse Oximetry: 97 %. Ears, Nose, Mouth, and Throat: No clinically significant hearing loss on informal examination. Respiratory: No respiratory distress. Even respirations and without use of accessory muscles.. Gastrointestinal (GI): Obese. Nondistended.. Integumentary (Hair, Skin) No periwound erythema, warmth, or significant drainage. No periwound rashes appreciated or noted otherwise.. Refer to appropriate clinician wound documentation for this visit; 3 ulcers over lower lumbar extending from upper to deep subcut with all partially covered with necrotic, bach wet slough along margins. Wound #1 Left Back is a chronic Full Thickness Surgical Wound and has received a status of Not Healed. Subsequent wound encounter measurements are 5cm length x 1.2cm width x 1.2cm depth, with an area of 6 sq cm and a volume of 7.2 cubic cm. No tunneling has been noted. No sinus tract has been noted. No undermining has been noted. There is a copious amount of serosanguineous drainage noted which has no odor. The patient reports a wound pain of level 0/10. The wound margin is attached. Wound bed has Yes epithelialization, Yes eschar, Yes slough, Yes bright red, pink, firm granulation. The periwound skin moisture is normal. The periwound skin color is normal. The periwound skin exhibited: Induration. The temperature of the periwound skin is WNL. Periwound skin does not exhibit signs or symptoms of infection. Local Pulse is N/A. Wound #2 Right, Proximal Back is a chronic Partial Thickness Surgical Wound and has received an outcome of Healed - new wound(s) - prevent. Subsequent wound encounter measurements are 0cm length x 0cm width x 0cm depth, with an area of 0 sq cm and a volume of 0 cubic cm. No tunneling has been noted. No sinus tract has been noted. No undermining has been noted. There was no drainage noted. The patient reports a wound pain of level 0/10. The wound margin is attached. Wound bed has No epithelialization, No eschar, No slough, No granulation. The periwound skin texture is normal. The periwound skin moisture is normal. The periwound skin color is normal. The temperature of the periwound skin is WNL. Periwound skin does not exhibit signs or symptoms of infection. Local Pulse is N/A. Wound #3 Right, Proximal Back is a chronic Eschar covered Surgical Wound and has received a status of Not Healed. Subsequent wound encounter measurements are 2.5cm length x 0.9cm width x 2.5cm depth, with an area of 2.25 sq cm and a volume of 5.625 cubic cm. No tunneling has been noted. No sinus tract has been noted. No undermining has been noted. There is a large amount of serous drainage noted which has no odor. The patient reports a wound pain of level 2/10. The wound margin is attached. Wound bed has No epithelialization, Yes eschar, Yes slough, Yes pink, firm granulation. The periwound skin moisture is normal. The periwound skin color is normal. The periwound skin exhibited: Induration. The temperature of the periwound skin is WNL. Periwound skin does not exhibit signs or symptoms of infection. Local Pulse is N/A. Wound #4 Right, Distal Back is a chronic Eschar covered Surgical Wound and has received a status of Not Healed. Subsequent wound encounter measurements are 1.6cm length x 0.5cm width x 0.2cm depth, with an area of 0.8 sq cm and a volume of 0.16 cubic cm. No tunneling has been noted. No sinus tract has been noted. No undermining has been noted. There is a large amount of serous drainage noted which has no odor. The patient reports a wound pain of level 0/10. The wound margin is attached. Wound bed has No epithelialization, Yes eschar, Yes slough, No granulation. The periwound skin moisture is normal. The periwound skin color is normal. The periwound skin exhibited: Induration. The temperature of the periwound skin is WNL. Periwound skin does not exhibit signs or symptoms of infection. Local Pulse is N/A. Neurological: Cranial nerves grossly intact with symmetric function normal by informal observation.. ASSESSMENT Active Problems ICD-10 (Encounter Diagnosis) L98.492 - Non-pressure chronic ulcer of skin of other sites with fat layer exposed (Encounter Diagnosis) S31.000D - Unspecified open wound of lower back and pelvis without penetration into retroperitoneum, subsequent encounter (Encounter Diagnosis) B95.62 - Methicillin resistant Staphylococcus aureus infection as the cause of diseases classified elsewhere (Encounter Diagnosis) B95.4 - Other streptococcus as the cause of diseases classified elsewhere PROCEDURES Wound #1 Wound #1 (Surgical Wound) is located on the left back. A skin/subcutaneous tissue level surgical debridement with a total area debrided of 6 sq cm was performed by Brandon Neal MD. Subcutaneous was removed along with devitalized tissue: necrotic/eschar and slough. The following instrument(s) were used: forceps and scissors. Pain control was achieved using 4% Lido. A time out was conducted prior to the start of the procedure. A minimal amount of bleeding was controlled with n/a. The procedure was tolerated well with a pain level of 0 throughout and a pain level of 0 following the procedure. Post Debridement Measurements: 5cm length x 1.2cm width x 1.3cm depth; with an area of 6 sq cm and a volume of 7.8 cubic cm; Wound #3 Wound #3 (Surgical Wound) is located on the right, proximal back. A skin/ subcutaneous tissue level surgical debridement with a total area debrided of 2.25 sq cm was performed by Brandon Neal MD. Subcutaneous was removed along with devitalized tissue: necrotic/ eschar and slough. The following instrument(s) were used: forceps and scissors. Pain control was achieved using 4% Lido. A time out was conducted prior to the start of the procedure. A minimal amount of bleeding was controlled with n/a. The procedure was tolerated well with a pain level of 0 throughout and a pain level of 0 following the procedure. Post Debridement Measurements: 2.5cm length x 0.9cm width x 2.6cm depth; with an area of 2.25 sq cm and a volume of 5.85 cubic cm; Wound #4 Wound #4 (Surgical Wound) is located on the right, distal back. A skin/ subcutaneous tissue level surgical debridement with a total area debrided of 0.96 sq cm was performed by Brandon Neal MD. Subcutaneous was removed along with devitalized tissue: necrotic/ eschar and slough. Pain control was achieved using 4% Lido. A time out was conducted prior to the start of the procedure. A minimal amount of bleeding was controlled with n/a. The procedure was tolerated well with a pain level of 0 throughout and a pain level of 0 following the procedure. Post Debridement Measurements: 1.6cm length x 0.6cm width x 0.3cm depth; with an area of 0.96 sq cm and a volume of 0.288 cubic cm; Additional Information Muscle fascia or bone removed and sent to pathology?: No Muscle fascia or bone removed and sent to pathology?: No Muscle fascia or bone removed and sent to pathology?: No PLAN Wound Orders: Wound #1 Left Back Anesthetic Topical Xylocaine to wound bed. - In clinic only Cleanser Cleanse Wound: - Normal saline and gauze May Shower. - Please avoid getting shower or tap water on dressings or in wound. Please cover while in shower with water proof covering or sponge bathe. Topical Treatments Antibiotic/Antimicrobial Ointment/Cream. - Gentamicin ointment Dressings Pack wound: - 1/2 ribbon gauze buttered with gentamicin ointment. Primary dressing: - Border Foam Change Dressing: - Everyday Wound #2 Right, Proximal Back Anesthetic Topical Xylocaine to wound bed. - In clinic only Cleanser Cleanse Wound: - Normal saline and gauze May Shower. - Please avoid getting shower or tap water on dressings or in wound. Please cover while in shower with water proof covering or sponge bathe. Wound #3 Right, Proximal Back Anesthetic Topical Xylocaine to wound bed. - In clinic only Cleanser Cleanse Wound: - Normal saline and gauze May Shower. - Please avoid getting shower or tap water on dressings or in wound. Please cover while in shower with water proof covering or sponge bathe. Topical Treatments Antibiotic/Antimicrobial Ointment/Cream. - Gentamicin ointment Dressings Pack wound: - 1/2 ribbon gauze buttered with gentamicin ointment. Primary dressing: - Border Foam Change Dressing: - Everyday Wound #4 Right, Distal Back Anesthetic Topical Xylocaine to wound bed. - In clinic only Cleanser Cleanse Wound: - Normal saline and gauze May Shower. - Please avoid getting shower or tap water on dressings or in wound. Please cover while in shower with water proof covering or sponge bathe. Topical Treatments Antibiotic/Antimicrobial Ointment/Cream. - Gentamicin ointment Dressings Primary dressing: - Border Foam Change Dressing: - Everyday Additional Orders: Follow-Up Appointments Return Appointment: - - One week Other information: If you develop fever, chills, increased pain, drainage, redness or swelling please call our office. If after hours, respond to the ER. Should you experience any significant changes in your wound(s) or have any questions regarding your home care instructions please contact the wound center @ [phone]. If after hours, contact your primary care physician or go to the hospital emergency room. Scribing Attestation I attest, as the nurse, that I scribed these orders for the physician. General Notes: Please finish taking antibiotics as prescribed. I've reviewed the clinician's documentation and agree with the evaluation and plan as written. In addition, the patient's ulcer demonstrates evidence of non-viable devitalized tissue which will continue to benefit from sharp debridement to help promote granulation and expedite healing. Also, the patient will continue on her two antibiotics and we'll await feedback from Dr. Monique regarding ongoing wound care following her upcoming surgery. Electronic Signature(s) Signed By: Date: Brandon Neal MD 07/25/2018 06:46:43 Entered By: Brandon Neal on 07/25/2018 06:46:17
== END ==
PROVIDERS: PCP Family Medicine; Visit Provider Internal Medicine
DX: L98.492 Non-pressure chronic ulcer of skin of other sites with fat layer exposed (principal); S31.000A Unspecified open wound of lower back and pelvis without penetration into retroperitoneum, initial encounter; B95.62 Methicillin resistant Staphylococcus aureus infection as the cause of diseases classified elsewhere; B95.4 Other streptococcus as the cause of diseases classified elsewhere
CPT/HCPCS: 11042

== ENCOUNTER 2018-07-27 12:53 | Inpatient (IN) | payer OTHER, SELFPAY ==
[2018-05-30 15:50] VITALS: BMI 48.5
[2018-07-23 13:36] VITALS: BMI 48.5
[2018-07-27] VITALS (15 sets, daily range): BP systolic 114–148; BP diastolic 62–87; PULSE 82–99; RESP 12–20; TEMP 36.2–36.4; O2SAT 93–97; BMI 48.5
--- NOTE | 2018-07-27 14:06 | PM.PREOP ---
Pre-operative Note Interval Note Pre-op Check: Yes History & Physical Reviewed by Physician, Yes Exam Performed and Yes History & Physical exam performed today by Physician Changes: No
[2018-07-27] MEDS: LACTATED RINGERS 1,000 ML 42 ML IV (14:26)
--- NOTE | 2018-07-27 15:00 | SUR.OPER ---
Lateral on padded OR bed, head on pillow, gel axillary roll in place, bottom leg bent with gel pad under knee to foot, upper leg straight and supported with pillows. Upper arm supported by pillows and secured over bottom arm to padded arm board. Safety belt at hip, tape over blanket lower legs.
[2018-07-27] MEDS: SODIUM CHLORIDE IRRIG SOLUTION 3,000 ML, GENTAMICIN 240 MG IRR ×2 (15:06)
[2018-07-27] MEDS: CEFAZOLIN 2 GM/100 ML FROZ.PIGGY IV (15:20)
--- NOTE | 2018-07-27 15:34 | PM.OP.1 ---
Operative Date/Time/Diagnoses Date of procedure: 07/27/18 Time of procedure: 14:34 Pre-op diagnosis: 1. Lumbar wound dehiscence 2. Delayed wound healing Post-op diagnosis: same Procedure & Clinicians Procedure: 1. Irrigation and debridement of skin and subcutaneous tissue Same procedure as scheduled: Yes Indications: Ms. Herman is over 1 month status post lumbar fusion procedure. She is progressing well with her pain control. She has been having a progressively worsening wound in her lumbar, mostly left sided, over the last 4 weeks. After discussing with Dr. Neal, donor services specialist, she was taken to the hospital for irrigation and debridement in preparation for a wound vac placement by Dr. Neal. Surgeon: Devante Monique Click Yes if Unassisted: Yes Anesthesia Type: General Operative Notes Closure Type: non-primary Specimen(s): other Estimated Blood Loss (mL): 10 Blood products transfused: none Procedure in detail: Ms. Herman was seen in the preoperative area. Risks and benefits of surgery was discussed. Informed consent was obtained and placed in the chart. Patient was taken to the operating room. Patient was placed into the supine position on the operating table. General anesthesia was administered. Time-out was performed at this time. Patient was placed into a semi lateral position with a aquino bag. patient's back was then prepped and draped in the sterile fashion. Patient's wound it is significantly improved compared to the last time I have seen patients wound approximately 2 weeks ago. There is only small parts of the wound with necrotic tissue which was excised using the 10 blade scalpel. Leksell rongeur was used to remove some of the deeper subcutaneous tissue. This was performed on both left-sided and the right-sided wound the left-sided wound measures approximately 2 in in the left-sided wound measures less than 1 in. Both are superficial and down just to the subcutaneous tissue and superficial to the fascia. After the debridement, the wound was irrigated with fluid 3 L of sterile normal saline with gentamicin. The wound was reinspected and both wounds has a healthy layer of granulation tissue exposed. The wound was repacked with wet to dry dressing. a sterile dressing of was applied the patient's back. Patient tolerated procedure well. Patient was woken up from anesthesia and transferred recovery room stable condition. Patient will be discharged back to the [facility] once criteria is met. Complications: none Condition: stable Disposition: same day surgery Plan for aftercare: Discharge to SNF
[2018-07-27 16:07] LABS: INR 1.3 (0.9-1.3); Prothrombin Time 14.5 SECONDS (10.1-12.7)
--- NOTE | 2018-07-27 16:08 | SUR.OPER ---
ancef given after cultures taken per dr. Monique
[2018-07-27] MEDS: OXYCODONE IR 5 MG TABLET PO (16:13)
[2018-07-27] MEDS: HYDROMORPHONE 2 MG INJ 0.5 MG IV ×2 (16:19→16:25)
[2018-07-27] MEDS: ONDANSETRON 4 MG/2 ML INJ IV (16:46)
--- NOTE | 2018-07-27 16:46 | SUR.PHASEII ---
Transfering pt to other side she became very nauseous and started vomiting and vomited approximately 200 cc of emisis. pt given zofran 4 mg IV and given queeze ease. cold towels applied to pt's head. and face wiped. pt states she feels better now. States she has been nauseated for the last 5 weeks.
[2018-07-27] MEDS: METOCLOPRAMIDE 10 MG/2 ML INJ IV (17:00)
[2018-07-27] MEDS: ePHEDrine 50 MG/ML VIAL 25 MG IM (17:46)
--- NOTE | 2018-07-27 17:56 | SUR.PHASEII ---
PT RESTING IN BED AT THIS TIME, VSS. PT SISTER AT BEDSIDE. PT EYES CLOSED AND EASILY AROUSABLE TO VOICE. PT CONTINUES TO C/O NAUSEA BUT NO FURTHER EMESIS AT THIS TIME. RECEIVED ORDER FOR EPHEDRINE IM TO GIVE FOR NAUSEA. GIVEN PER ORDER. PT TOLERATED WELL. REPORT CALLED TO PALAK PALAFOX AT [facility]. PER RN AT [facility], PT TRANSPORTATION FOR PT WILL NOT ARRIVE UNTIL 1914. PT RESTING IN BED AT THIS TIME AND APPEARS COMFORTABLE. BED IN LOWEST POSITION AND CALL LIGHT GIVEN TO PT. PT SISTER SITTING AT PT SIDE. DRSG ON SURGICAL SITE OBSERVED TO BE C/D/I. REVIEWED DC INSTRUCTIONS WITH PT AND PT SISTER.
--- NOTE | 2018-07-27 18:21 | SUR.PHASEII ---
PT SLEEPING IN BED AT THIS TIME, VSS. PT EASILY AROUSABLE TO VOICE WHEN SPOKEN TO. PT STATES NAUSEA IS BETTER AT THIS TIME. PT SISTER REMAINS AT BEDSIDE. PT APPEARS COMFORTABLE AND AWAITING ARRIVAL OF TRANSPORTATION BACK TO CARE FACILITY.
--- NOTE | 2018-07-27 19:44 | SUR.PHASEII ---
pt transfered to care facility by transport company provided by facility. pt sister at pt side at time of discharge. Paper copies given to pt sister to take to care facility and be given to the RN. Pt left facility in stable condition, vss. Pt dressing observed to be c/d/i. pt denied any pain/discomfort.
== END 2018-07-27 19:05 | DRG 903 ==
PROVIDERS: Physician Assistant Surgical; Admitting Provider Orthopaedic Surgery Orthopaedic Surgery of the Spine; PCP Family Medicine; Visit Provider Orthopaedic Surgery Orthopaedic Surgery of the Spine
PROC: 0JB70ZZ Excision of Back Subcutaneous Tissue and Fascia, Open Approach (ICD-10-PCS; CPT 10180; principal; 2018-07-27 14:45)
DX: T81.30XA Disruption of wound, unspecified, initial encounter (principal); I10 Essential (primary) hypertension; K21.9 Gastro-esophageal reflux disease without esophagitis; M06.9 Rheumatoid arthritis, unspecified; J45.909 Unspecified asthma, uncomplicated; G47.33 Obstructive sleep apnea (adult) (pediatric); L98.492 Non-pressure chronic ulcer of skin of other sites with fat layer exposed; S31.000A Unspecified open wound of lower back and pelvis without penetration into retroperitoneum, initial encounter; B95.62 Methicillin resistant Staphylococcus aureus infection as the cause of diseases classified elsewhere; B95.4 Other streptococcus as the cause of diseases classified elsewhere
CPT/HCPCS: 11042; 85610; 87070; 87075; 87077; 87186; 87205; J0690; J1170; J2250; J2405; J2704; J2765; J3010

== ENCOUNTER → 2018-07-31 14:40 | Outpatient (CLI) | payer OTHER, SELFPAY ==
[2018-05-30 15:50] VITALS: BMI 48.5
--- NOTE | 2018-07-31 | OV.WND_ITS ---
Progress Note Details Patient Name: Natali Herman Patient Number: [id number] PatientPatientDate: 07/31/2018 Clinician: Katelynn Govea Clinician Cosigner: Karen Meyer Physician / Custom Shop Worker: Brandon Neal SUBJECTIVE Chief Complaint This information was obtained from the patient Non-healing wound to back post op Allergies NKDA HPI This information was obtained from the patient 07/31/18. Seen by Dr. Neal. The patient underwent a deep debridement of the lumbar non- pressure ulcers last Monday by Dr. Monique and she does not report significant pain since the procedure. She'll reportedly be discharged from assisted very soon and will have a full- time caregiver available to assist with her wound care at home. 07/24/18. Seen by Dr. Neal. The patient's wound cultures from the lower back non-pressure ulcers grew a Strep species and two resistant species of MRSA. She's now on Bactrim and doxycycline and reports some nausea. She's also scheduled to see Dr. Monique on Monday for deep debridement of the ulcers in the OR. 07/17/18. Seen by Dr. Neal. 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 She's been residing in assisted and undergoing wet to dry dressing changes. She reports some pain at the ulcer sites and has difficulty offloading due to morbid obesity and very limited mobility. She's not currently on antibiotics and will not be able to see her surgeon again for at least one week. Past Medical History This information was obtained from the patient Patient has a medical history of: Hypertension Pulmonary Embolus Obesity Asthma Spondylosis Osteoarthritis Complaints and Symptoms This information was obtained from the patient Patient complains of: General Notes: I have reviewed and concur with the Review of Systems and Past Family Social History documents completed by the clinician, I have reviewed and concur with the Wound Assessment document completed by the clinician Hematologic/Lymphatic: Bleeding Tendency Integumentary (Hair/Skin/Nails): Open Sore Prior Wound History: Drainage, Erythema, Pain Patient denies complaints or symptoms related to: Constitutional Symptoms (General Health): Chills, Fever Ear/Nose/Mouth/Throat: Hearing Loss / Aid Hematologic/Lymphatic: Bleeding / Clotting Disorders Musculoskeletal: Backache Neurological: Loss of Protective Sensation Respiratory: Shortness of Breath Additional Information Does patient have a history of Cancer? Yes? Complete all questions.: No OBJECTIVE Constitutional Vital signs reviewed and noted. Well developed. Alert. Clean appearing.. Height/ Length: 60 in (152.4 cm), Weight: 236.3 lbs (107.41 kgs), BMI: 46.1, Temperature: 97.0 ?F ( 36.11 ?C), Pulse: 106 bpm, Respiratory Rate: 18 breaths/min, Blood Pressure: 135/77 mmHg, Pulse Oximetry: 97 %. Respiratory: No respiratory distress. Even respirations and without use of accessory muscles.. Gastrointestinal (GI): Obese. Nondistended.. Integumentary (Hair, Skin) Mild periwound erythema with warmth. Refer to appropriate clinician wound documentation for this visit; 2 large and one smaller lower lumbar wounds extend to deep subcutaneous with minimal yellow slough overlying bases covered mostly with red granulation. Wound #1 Left Back is a chronic Full Thickness Surgical Wound and has received a status of Not Healed. Subsequent wound encounter measurements are 6.5cm length x 1.2cm width x 1.8cm depth, with an area of 7.8 sq cm and a volume of 14.04 cubic cm. No tunneling has been noted. No sinus tract has been noted. No undermining has been noted. There is a copious amount of serosanguineous drainage noted which has no odor. The patient reports a wound pain of level 0/10. The wound margin is attached. Wound bed has No epithelialization, Yes eschar, Yes slough, Yes bright red, firm granulation. The periwound skin moisture is normal. The periwound skin color is normal. The periwound skin exhibited: Induration. The temperature of the periwound skin is WNL. Periwound skin does not exhibit signs or symptoms of infection. Local Pulse is N/A. Wound #3 Right, Proximal Back is a chronic Full Thickness Surgical Wound and has received a status of Not Healed. Subsequent wound encounter measurements are 2.6cm length x 2cm width x 2.9cm depth, with an area of 5.2 sq cm and a volume of 15.08 cubic cm. No tunneling has been noted. No sinus tract has been noted. No undermining has been noted. There is a large amount of serosanguineous drainage noted which has no odor. The patient reports a wound pain of level 2/10. The wound margin is attached. Wound bed has No epithelialization, Yes eschar, Yes slough, Yes bright red, firm granulation. The periwound skin moisture is normal. The periwound skin color is normal. The temperature of the periwound skin is WNL. Periwound skin does not exhibit signs or symptoms of infection. Local Pulse is N/A. Wound #4 Right, Distal Back is a chronic Full Thickness Surgical Wound and has received a status of Not Healed. Subsequent wound encounter measurements are 1.5cm length x 0.5cm width x 0.2cm depth, with an area of 0.75 sq cm and a volume of 0.15 cubic cm. No tunneling has been noted. No sinus tract has been noted. No undermining has been noted. There is a large amount of serosanguineous drainage noted which has no odor. The patient reports a wound pain of level 0/10. The wound margin is attached. Wound bed has No epithelialization, No eschar, Yes slough, Yes bright red, firm granulation. The periwound skin moisture is normal. The periwound skin color is normal. The temperature of the periwound skin is WNL. Periwound skin does not exhibit signs or symptoms of infection. Local Pulse is N/A. Neurological: Cranial nerves grossly intact with symmetric function normal by informal observation.. ASSESSMENT Active Problems ICD-10 (Encounter Diagnosis) L98.492 - Non-pressure chronic ulcer of skin of other sites with fat layer exposed (Encounter Diagnosis) S31.000D - Unspecified open wound of lower back and pelvis without penetration into retroperitoneum, subsequent encounter (Encounter Diagnosis) L08.9 - Local infection of the skin and subcutaneous tissue, unspecified PROCEDURES Wound #4 Wound #4 (Surgical Wound) is located on the right, distal back. A skin/ subcutaneous tissue level surgical debridement with a total area debrided of 0.75 sq cm was performed by Brandon Neal MD. Subcutaneous was removed along with devitalized tissue: exudate and slough. The following instrument(s) were used: curette. Pain control was achieved using 4% Lido. A time out was conducted prior to the start of the procedure. No bleeding occurred. The procedure was tolerated well with a pain level of 0 throughout and a pain level of 0 following the procedure. Post Debridement Measurements: 1.5cm length x 0.5cm width x 0.2cm depth; with an area of 0.75 sq cm and a volume of 0.15 cubic cm; Additional Information Muscle fascia or bone removed and sent to pathology?: No PLAN Wound Orders: Wound #1 Left Back Cleanser Cleanse Wound: - With Normal saline or distilled water Dressings Pack wound: - Lightly pack into wound Aquacel Primary dressing: - Border Foam Change Dressing: - Every other day. Off-Loading Keep weight off: - Back (wounds) Specialty Bed/Mattress for Pressure Reduction. - Alternating Air Mattress for Pressure Reduction Turn every 2 hours. Avoid position directing pressure to Wound site. Limit side lying to 30 degree tilt. Limit HOB elevation to 30 degrees in bed. Follow-Up Appointments Return Appointment: - - One week Other information: If you develop fever, chills, increased pain, drainage, redness or swelling please call our office. If after hours, respond to the ER. Should you experience any significant changes in your wound(s) or have any questions regarding your home care instructions please contact the wound center @ [phone]. If after hours, contact your primary care physician or go to the hospital emergency room. - Continue Doxycycline 100mg PO twice a day for 7 days. Scribing Attestation I attest, as the nurse, that I scribed these orders for the physician. Wound #3 Right, Proximal Back Cleanser Cleanse Wound: - With Normal saline or distilled water Dressings Pack wound: - Lightly pack into wound Aquacel Primary dressing: - Border Foam Change Dressing: - Every other day. Off-Loading Keep weight off: - Back (wounds) Specialty Bed/Mattress for Pressure Reduction. - Alternating Air Mattress for Pressure Reduction Turn every 2 hours. Avoid position directing pressure to Wound site. Limit side lying to 30 degree tilt. Limit HOB elevation to 30 degrees in bed. Follow-Up Appointments Return Appointment: - - One week Other information: If you develop fever, chills, increased pain, drainage, redness or swelling please call our office. If after hours, respond to the ER. Should you experience any significant changes in your wound(s) or have any questions regarding your home care instructions please contact the wound center @ [phone]. If after hours, contact your primary care physician or go to the hospital emergency room. - Continue Doxycycline 100mg PO twice a day for 7 days. Scribing Attestation I attest, as the nurse, that I scribed these orders for the physician. Wound #4 Right, Distal Back Cleanser Cleanse Wound: - With Normal saline or distilled water Dressings Pack wound: - Lightly pack into wound Aquacel Primary dressing: - Border Foam Change Dressing: - Every other day. Off-Loading Keep weight off: - Back (wounds) Specialty Bed/Mattress for Pressure Reduction. - Alternating Air Mattress for Pressure Reduction Turn every 2 hours. Avoid position directing pressure to Wound site. Limit side lying to 30 degree tilt. Limit HOB elevation to 30 degrees in bed. Follow-Up Appointments Return Appointment: - - One week Other information: If you develop fever, chills, increased pain, drainage, redness or swelling please call our office. If after hours, respond to the ER. Should you experience any significant changes in your wound(s) or have any questions regarding your home care instructions please contact the wound center @ [phone]. If after hours, contact your primary care physician or go to the hospital emergency room. - Continue Doxycycline 100mg PO twice a day for 7 days. Scribing Attestation I attest, as the nurse, that I scribed these orders for the physician. Laboratory: Culture Wound - Culture taken from wound #1 and #4 Medications prescribed: doxycycline hyclate - oral 100 mg capsule twice daily for 7 days starting 2017 I've reviewed the clinician's documentation and agree with the evaluation and plan as written. In addition, the patient's ulcer demonstrates evidence of non-viable devitalized tissue which will continue to benefit from sharp debridement to help promote granulation and expedite healing. Also, I've taken wound cultures and restarted the patient on doxycycline due to periwound erythema and warmth noted on exam today. Electronic Signature(s) Signed By: Date: Brandon Neal MD 08/03/2018 07:29:40 Entered By: Brandon Neal on 08/03/2018 07:12:22
== END ==
PROVIDERS: PCP Family Medicine; Visit Provider Internal Medicine
DX: L98.492 Non-pressure chronic ulcer of skin of other sites with fat layer exposed (principal); L08.9 Local infection of the skin and subcutaneous tissue, unspecified; S31.000D Unspecified open wound of lower back and pelvis without penetration into retroperitoneum, subsequent encounter
CPT/HCPCS: 11042; 87070; 87075; 87205

== ENCOUNTER → 2018-08-07 10:22 | Outpatient (CLI) | payer OTHER, SELFPAY ==
[2018-05-30 15:50] VITALS: BMI 48.5
--- NOTE | 2018-08-07 | OV.WND_ITS ---
Progress Note Details Patient Name: Natali Herman Patient Number: [id number] PatientPatientDate: 08/07/2018 Clinician: Misty Price Clinician Cosigner: Karen Meyer Physician / Med Admin: Brandon Neal SUBJECTIVE Chief Complaint This information was obtained from the patient Non-healing wound to back post op Allergies NKDA HPI This information was obtained from the patient 08/07/18. Seen by Dr. Neal. The patient's now been transferred from senior care to home and is living with her sister who's managing her care along with home health. She reports significant nausea while taking doxycycline for infections associated with the lower lumber non-pressure ulcers however her wound culture from the last visit was unremarkable. Her pre- albumin however returned low at 14.1. 07/31/18. Seen by Dr. Neal. The patient underwent a deep debridement of the lumbar non- pressure ulcers last Monday by Dr. Monique and she does not report significant pain since the procedure. She'll reportedly be discharged from senior care very soon and will have a full- time caregiver available to assist with her wound care at home. 07/24/18. Seen by Dr. Neal. The patient's wound cultures from the lower back non-pressure ulcers grew a Strep species and two resistant species of MRSA. She's now on Bactrim and doxycycline and reports some nausea. She's also scheduled to see Dr. Monique on Monday for deep debridement of the ulcers in the OR. 07/17/18. Seen by Dr. Neal. 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 She's been residing in senior care and undergoing wet to dry dressing changes. She reports some pain at the ulcer sites and has difficulty offloading due to morbid obesity and very limited mobility. She's not currently on antibiotics and will not be able to see her surgeon again for at least one week. Past Medical History This information was obtained from the patient Patient has a medical history of: Hypertension Pulmonary Embolus Obesity Asthma Spondylosis Osteoarthritis Complaints and Symptoms This information was obtained from the patient Patient complains of: General Notes: I have reviewed and concur with the Review of Systems and Past Family Social History documents completed by the clinician, I have reviewed and concur with the Wound Assessment document completed by the clinician Hematologic/Lymphatic: Bleeding Tendency Integumentary (Hair/Skin/Nails): Open Sore Prior Wound History: Drainage, Erythema, Pain Patient denies complaints or symptoms related to: Constitutional Symptoms (General Health): Chills, Fever Ear/Nose/Mouth/Throat: Hearing Loss / Aid Hematologic/Lymphatic: Bleeding / Clotting Disorders Musculoskeletal: Backache Neurological: Loss of Protective Sensation Respiratory: Shortness of Breath Additional Information Does patient have a history of Cancer? Yes? Complete all questions.: No OBJECTIVE Constitutional Vital signs reviewed and noted. Well developed. Alert. Clean appearing.. Height/ Length: 60 in (152.4 cm), Weight: 236.3 lbs (107.41 kgs), BMI: 46.1, Temperature: 97.2 ?F ( 36.22 ?C), Pulse: 88 bpm, Respiratory Rate: 18 breaths/min, Blood Pressure: 118/75 mmHg, Pulse Oximetry: 99 %. Ears, Nose, Mouth, and Throat: No clinically significant hearing loss on informal examination. Respiratory: No respiratory distress. Even respirations and without use of accessory muscles.. Gastrointestinal (GI): Obese. Nondistended.. Integumentary (Hair, Skin) Mild periwound erythema without warmth; improved from last visit. Refer to appropriate clinician wound documentation for this visit; 2 large and one smaller lower lumbar wounds extend to deep subcutaneous with minimal yellow slough overlying bases covered mostly with red granulation. Wound #1 Left Back is a chronic Full Thickness Surgical Wound and has received a status of Not Healed. Subsequent wound encounter measurements are 5.7cm length x 1.6cm width x 1.8cm depth, with an area of 9.12 sq cm and a volume of 16.416 cubic cm. No tunneling has been noted. No sinus tract has been noted. No undermining has been noted. There is a small amount of serosanguineous drainage noted which has no odor. The patient reports a wound pain of level 0/10. The wound margin is attached. Wound bed has No epithelialization, Yes eschar, Yes slough, Yes bright red, pink, firm granulation. The periwound skin moisture is normal. The periwound skin exhibited: Induration , Erythema. The periwound skin did not exhibit: Atrophie [place], Cyanosis, Ecchymosis, Hemosiderosis, Pallor, Rubor. The temperature of the periwound skin is WNL. Periwound skin does not exhibit signs or symptoms of infection. Local Pulse is N/A. Wound #3 Right, Proximal Back is a chronic Full Thickness Surgical Wound and has received a status of Not Healed. Subsequent wound encounter measurements are 2.6cm length x 1.6cm width x 2cm depth, with an area of 4.16 sq cm and a volume of 8.32 cubic cm. No tunneling has been noted. No sinus tract has been noted. No undermining has been noted. There is a moderate amount of serosanguineous drainage noted which has no odor. The patient reports a wound pain of level 0/10. The wound margin is attached. Wound bed has No epithelialization, Yes eschar, Yes slough, Yes bright red, pink, firm granulation. The periwound skin moisture is normal. The periwound skin exhibited: Erythema. The periwound skin did not exhibit: Atrophie [place], Cyanosis, Ecchymosis, Hemosiderosis, Pallor, Rubor. The temperature of the periwound skin is WNL. Periwound skin does not exhibit signs or symptoms of infection. Local Pulse is N/A. Wound #4 Right, Distal Back is a chronic Full Thickness Surgical Wound and has received a status of Not Healed. Subsequent wound encounter measurements are 1.5cm length x 0.5cm width x 0.8cm depth, with an area of 0.75 sq cm and a volume of 0.6 cubic cm. No tunneling has been noted. No sinus tract has been noted. No undermining has been noted. There is a small amount of serosanguineous drainage noted which has no odor. The patient reports a wound pain of level 0/10. The wound margin is attached. Wound bed has No epithelialization, No eschar, Yes slough, Yes bright red, pink, firm granulation. The periwound skin moisture is normal. The periwound skin exhibited: Induration , Erythema. The periwound skin did not exhibit: [place] Induration, Edema, Excoriation, Callus, Crepitus, Fluctuance, [place], Rash, Atrophie [place], Cyanosis, Ecchymosis, Hemosiderosis , Pallor, Rubor. The temperature of the periwound skin is WNL. Periwound skin does not exhibit signs or symptoms of infection. Local Pulse is N/A. Neurological: Cranial nerves grossly intact with symmetric function normal by informal observation.. ASSESSMENT Active Problems ICD-10 (Encounter Diagnosis) L98.492 - Non-pressure chronic ulcer of skin of other sites with fat layer exposed (Encounter Diagnosis) S31.000D - Unspecified open wound of lower back and pelvis without penetration into retroperitoneum, subsequent encounter (Encounter Diagnosis) T36.8X5A - Adverse effect of other systemic antibiotics, initial encounter PROCEDURES Wound #1 Wound #1 (Surgical Wound) is located on the left back. A skin/subcutaneous tissue level surgical debridement with a total area debrided of 9.12 sq cm was performed by Brandon Neal MD. Subcutaneous was removed along with devitalized tissue: biofilm, exudate , and slough. The following instrument(s) were used: curette. Pain control was achieved using 4% Lido. A time out was conducted prior to the start of the procedure. A minimal amount of bleeding was controlled with n/a. The procedure was tolerated well with a pain level of 0 throughout and a pain level of 0 following the procedure. Post Debridement Measurements: 5.7cm length x 1.6cm width x 1.9cm depth; with an area of 9.12 sq cm and a volume of 17.328 cubic cm; Wound #3 Wound #3 (Surgical Wound) is located on the right, proximal back. A skin/ subcutaneous tissue level surgical debridement with a total area debrided of 4.16 sq cm was performed by Brandon Neal MD. Subcutaneous was removed along with devitalized tissue: biofilm, exudate, and slough. The following instrument(s) were used: curette. Pain control was achieved using 4% Lido. A time out was conducted prior to the start of the procedure. A minimal amount of bleeding was controlled with n/a. The procedure was tolerated well with a pain level of 0 throughout and a pain level of 0 following the procedure. Post Debridement Measurements: 2.6cm length x 1.6cm width x 2.1cm depth; with an area of 4.16 sq cm and a volume of 8.736 cubic cm; Wound #4 Wound #4 (Surgical Wound) is located on the right, distal back. A skin/ subcutaneous tissue level surgical debridement with a total area debrided of 0.75 sq cm was performed by Brandon Neal MD. Subcutaneous was removed along with devitalized tissue: biofilm, exudate, and slough. The following instrument(s) were used: curette. Pain control was achieved using 4% Lido. A time out was conducted prior to the start of the procedure. A minimal amount of bleeding was controlled with n/a. The procedure was tolerated well with a pain level of 0 throughout and a pain level of 0 following the procedure. Post Debridement Measurements: 1.5cm length x 0.5cm width x 0.9cm depth; with an area of 0.75 sq cm and a volume of 0.675 cubic cm; Additional Information Muscle fascia or bone removed and sent to pathology?: No Muscle fascia or bone removed and sent to pathology?: No Muscle fascia or bone removed and sent to pathology?: No PLAN Wound Orders: Wound #1 Left Back Anesthetic Topical Xylocaine to wound bed. - IN clinic only Cleanser Cleanse Wound: - With Normal saline or distilled water Dressings Pack wound: - Lightly pack into wound Aquacel Primary dressing: - Border Foam Change Dressing: - Home health nurse please do dressing change everyday except Monday. We will see patient on Monday. Off-Loading Keep weight off: - Back (wounds) Specialty Bed/Mattress for Pressure Reduction. - Alternating Air Mattress for Pressure Reduction Turn every 2 hours. Avoid position directing pressure to Wound site. Limit side lying to 30 degree tilt. Limit HOB elevation to 30 degrees in bed. Follow-Up Appointments Return Appointment: - - One week Other information: If you develop fever, chills, increased pain, drainage, redness or swelling please call our office. If after hours, respond to the ER. Should you experience any significant changes in your wound(s) or have any questions regarding your home care instructions please contact the wound center @ [phone]. If after hours, contact your primary care physician or go to the hospital emergency room. Scribing Attestation I attest, as the nurse, that I scribed these orders for the physician. Wound #3 Right, Proximal Back Anesthetic Topical Xylocaine to wound bed. - [place] clinic only Cleanser Cleanse Wound: - With Normal saline or distilled water Dressings Pack wound: - Lightly pack into wound Aquacel Primary dressing: - Border Foam Change Dressing: - Home health nurse please do dressing change everyday except Monday. We will see patient on Monday and we will do dressing change in the clinic. Off-Loading Keep weight off: - Back (wounds) Specialty Bed/Mattress for Pressure Reduction. - Alternating Air Mattress for Pressure Reduction Turn every 2 hours. Avoid position directing pressure to Wound site. Limit side lying to 30 degree tilt. Limit HOB elevation to 30 degrees in bed. Wound #4 Right, Distal Back Anesthetic Topical Xylocaine to wound bed. - [place] clinic only Cleanser Cleanse Wound: - With Normal saline or distilled water Dressings Pack wound: - Lightly pack into wound Aquacel Primary dressing: - Border Foam Change Dressing: - Home health nurse please do dressing change everyday except Monday. We will see patient Monday. Off-Loading Keep weight off: - Back (wounds) Specialty Bed/Mattress for Pressure Reduction. - Alternating Air Mattress for Pressure Reduction Turn every 2 hours. Avoid position directing pressure to Wound site. Limit side lying to 30 degree tilt. Limit HOB elevation to 30 degrees in bed. General Notes: Please discontinue taking your doxycycline today. I've reviewed the clinician's documentation and agree with the evaluation and plan as written. In addition the patient's ulcers demonstrate evidence of non-viable devitalized tissue and they will continue to benefit from sharp debridement to help promote granulation and expedite healing. Also, she'll discontinue use of doxycycline due to the nausea and based on my exam today. We'll also follow up regarding approval for her [employer] wound vac and place this as soon as possible. Electronic Signature(s) Signed By: Date: Brandon Neal MD 08/08/2018 07:09:40 Entered By: Brandon Neal on 08/08/2018 07:04:33
== END ==
PROVIDERS: PCP Family Medicine; Visit Provider Internal Medicine
DX: L98.492 Non-pressure chronic ulcer of skin of other sites with fat layer exposed (principal); S31.000A Unspecified open wound of lower back and pelvis without penetration into retroperitoneum, initial encounter; T36.8X5A Adverse effect of other systemic antibiotics, initial encounter; R11.0 Nausea
CPT/HCPCS: 11042

== ENCOUNTER → 2018-08-07 10:31 | Outpatient (CLI) | payer OTHER, SELFPAY ==
[2018-05-30 15:50] VITALS: BMI 48.5
== END ==
PROVIDERS: PCP Family Medicine; Visit Provider Internal Medicine

== ENCOUNTER → 2018-08-14 10:29 | Outpatient (CLI) | payer OTHER, SELFPAY ==
[2018-05-30 15:50] VITALS: BMI 48.5
== END ==
PROVIDERS: PCP Family Medicine; Visit Provider Family Medicine
DX: S31.000A Unspecified open wound of lower back and pelvis without penetration into retroperitoneum, initial encounter (principal); R77.0 Abnormality of albumin
CPT/HCPCS: 11042; 97605; 99213

== ENCOUNTER → 2018-08-16 13:40 | Outpatient (CLI) | payer OTHER, SELFPAY ==
[2018-05-30 15:50] VITALS: BMI 48.5
== END ==
PROVIDERS: PCP Family Medicine; Visit Provider Family Medicine
DX: S31.000A Unspecified open wound of lower back and pelvis without penetration into retroperitoneum, initial encounter (principal)
CPT/HCPCS: 97605

== ENCOUNTER → 2018-08-21 10:18 | Outpatient (CLI) | payer OTHER, SELFPAY ==
[2018-05-30 15:50] VITALS: BMI 48.5
== END ==
PROVIDERS: PCP Family Medicine; Visit Provider Family Medicine
DX: S31.000A Unspecified open wound of lower back and pelvis without penetration into retroperitoneum, initial encounter (principal)
CPT/HCPCS: 11042; 97605

== ENCOUNTER → 2018-08-23 11:07 | Outpatient (CLI) | payer OTHER, SELFPAY ==
[2018-05-30 15:50] VITALS: BMI 48.5
== END ==
PROVIDERS: PCP Family Medicine; Visit Provider Family Medicine
DX: S31.000A Unspecified open wound of lower back and pelvis without penetration into retroperitoneum, initial encounter (principal)
CPT/HCPCS: 97605

== ENCOUNTER → 2018-08-28 09:57 | Outpatient (CLI) | payer OTHER, SELFPAY ==
[2018-05-30 15:50] VITALS: BMI 48.5
== END ==
PROVIDERS: PCP Family Medicine; Visit Provider Family Medicine
DX: S31.000A Unspecified open wound of lower back and pelvis without penetration into retroperitoneum, initial encounter (principal)
CPT/HCPCS: 11042; 97605

== ENCOUNTER → 2018-09-04 13:55 | Outpatient (CLI) | payer OTHER, SELFPAY ==
[2018-05-30 15:50] VITALS: BMI 48.5
== END ==
PROVIDERS: PCP Family Medicine; Visit Provider Family Medicine
DX: S31.000A Unspecified open wound of lower back and pelvis without penetration into retroperitoneum, initial encounter (principal)
CPT/HCPCS: 11042; 99212

== ENCOUNTER → 2018-09-11 11:28 | Outpatient (CLI) | payer OTHER, SELFPAY ==
[2018-05-30 15:50] VITALS: BMI 48.5
== END ==
PROVIDERS: PCP Family Medicine; Visit Provider Family Medicine
DX: S31.000A Unspecified open wound of lower back and pelvis without penetration into retroperitoneum, initial encounter (principal)
CPT/HCPCS: 11042

== ENCOUNTER → 2018-09-18 10:18 | Outpatient (CLI) | payer OTHER, SELFPAY ==
[2018-05-30 15:50] VITALS: BMI 48.5
== END ==
PROVIDERS: PCP Family Medicine; Visit Provider Family Medicine
DX: S31.000A Unspecified open wound of lower back and pelvis without penetration into retroperitoneum, initial encounter (principal); L08.9 Local infection of the skin and subcutaneous tissue, unspecified
CPT/HCPCS: 11042; 87070; 87075; 87077; 87147; 87186; 87205

== ENCOUNTER → 2018-09-25 10:17 | Outpatient (CLI) | payer OTHER, SELFPAY ==
[2018-05-30 15:50] VITALS: BMI 48.5
== END ==
PROVIDERS: PCP Family Medicine; Visit Provider Family Medicine
DX: S31.000A Unspecified open wound of lower back and pelvis without penetration into retroperitoneum, initial encounter (principal); L08.9 Local infection of the skin and subcutaneous tissue, unspecified
CPT/HCPCS: 11042

== ENCOUNTER → 2018-10-08 12:46 | Outpatient (CLI) | payer OTHER, SELFPAY ==
[2018-05-30 15:50] VITALS: BMI 48.5
== END ==
PROVIDERS: PCP Family Medicine; Visit Provider Family Medicine
DX: S31.000A Unspecified open wound of lower back and pelvis without penetration into retroperitoneum, initial encounter (principal); L08.9 Local infection of the skin and subcutaneous tissue, unspecified
CPT/HCPCS: 11042

== ENCOUNTER → 2018-10-22 13:15 | Outpatient (CLI) | payer OTHER, SELFPAY ==
[2018-05-30 15:50] VITALS: BMI 48.5
== END ==
PROVIDERS: PCP Family Medicine; Visit Provider Family Medicine
DX: S31.000A Unspecified open wound of lower back and pelvis without penetration into retroperitoneum, initial encounter (principal)
CPT/HCPCS: 97597

== ENCOUNTER → 2018-11-05 10:14 | Outpatient (CLI) | payer OTHER, SELFPAY ==
[2018-05-30 15:50] VITALS: BMI 48.5
== END ==
PROVIDERS: PCP Family Medicine; Visit Provider Family Medicine
DX: S31.000D Unspecified open wound of lower back and pelvis without penetration into retroperitoneum, subsequent encounter (principal)
CPT/HCPCS: 99212; 99213